=== PATIENT | male | born 1950 | race Caucasian/White ===

== ENCOUNTER 2017-09-25 09:38 | Emergency (ER) | payer MEDICARE, MEDICAID ==
[2017-09-25] MEDS ORDERED: LORazepam 1 MG Tab PO ONE (09:43)
[2017-09-25 09:55] VITALS: BP 135/81
[2017-09-25 10:39] LABS: CHLORIDE,CL 102 mmol/L (98-107); SODIUM,NA 140 mmol/L (136-145)
--- NOTE | 2017-09-25 12:03 | EDM.PDOCBH ---
ED HPI GENERAL MEDICAL PROBLEM - General Chief Complaint: Behavioral/Psych Time Seen by Provider: 09/25/17 11:57 Source of Information: Reports: Patient History Limitations: Reports: No Limitations - History of Present Illness INITIAL COMMENTS - FREE TEXT/NARRATIVE: Pt. is a resident at [facility]. He has a history of mental health including bipolar. Pt. was on Keppra which acted as a mood stablizer and this was recently discontinued by neurology. Since that time, pt. has been experiencing increased behavioral problems, carey, and occasional combativeness, according to nursing staff. Dr. Rodriguez, psychiatry at [facility], has sent the pt. to ER for medical clearance prior to transfer to [facility]. Onset: Today - Related Data Allergies Allergy/AdvReac Type Severity Reaction Status Date / Time desipramine Allergy unknown Verified 09/25/17 09:46 fluphenazine enanthate Allergy unknown Verified 09/25/17 09:46 [From Prolixin] fluphenazine HCl Allergy unknown Verified 09/25/17 09:46 [From Prolixin] NSAIDS (Non-Steroidal Allergy unknown Verified 09/25/17 09:46 Anti-Inflamma Home Meds: Home Meds Acetaminophen [Tylenol] 650 mg PO Q4HR PRN 07/28/15 [History] Allopurinol [Zyloprim] 100 mg PO DAILY 07/28/15 [History] Calcium Polycarbophil [Fibercon] 3 tab PO TID 07/28/15 [History] Cholecalciferol (Vitamin D3) [Vitamin D3] 1,000 unit PO DAILY 07/28/15 [History] Docusate Sodium [Colace] 100 mg PO BID 07/28/15 [History] Fenofibrate Nanocrystallized [Tricor] 145 mg PO BEDTIME 07/28/15 [History] Fish Oil/[place]-3 Fatty Acids [Fish Oil 1,000 MG] 1,000 mg PO BID 07/28/15 [ History] Haloperidol Lactate [Haldol] 5 mg IM Q6HR PRN 07/28/15 [History] Haloperidol [Haldol] 5 mg PO Q6H PRN 07/28/15 [History] Loxapine Succinate [Loxapine] 5 mg PO BID 07/28/15 [History] Menthol/Zinc Oxide [Calmoseptine Ointment Packet] 1 applic TOP BID 07/28/15 [ History] Multivitamin [Daily Multiple Vitamin] 1 tab PO DAILY 07/28/15 [History] Omeprazole [Prilosec] 20 mg PO DAILY 07/28/15 [History] Polyethylene Glycol 3350 [MiraLAX] 17 gm PO QAM 07/28/15 [History] Polymyxin B/Trimethoprim [PolyTrim Ophth Soln] 10 ml OP QID 07/28/15 [History] Sennosides [Senna] 8.6 mg PO BID 07/28/15 [History] Topiramate [Topamax] 50 mg PO BID 07/28/15 [History] Mirtazapine [Remeron] 30 mg PO QPM #30 tablet 08/04/15 [Rx] Multivitamin,Stress Formula [Stress Formula] 1 each PO DAILY 08/04/15 [History] Rivaroxaban [Xarelto] 20 mg PO DAILY #30 tablet 08/04/15 [Rx] cloZAPine 350 mg PO BEDTIME #30 tablet 08/04/15 [Rx] Past Medical History HEENT History: Reports: Other (See Below) Other HEENT History: Disorder of teeth and supporting structures, impacted cerumen bilaterally Cardiovascular History: Reports: Afib, Blood Clots/VTE/DVT, High Cholesterol Respiratory History: Reports: Other (See Below) Other Respiratory History: cough Gastrointestinal History: Reports: Chronic Constipation, GERD Other Gastrointestinal History: Unspecified Nutritional Deficiency, Abnormal Weight Loss Genitourinary History: Reports: BPH, Renal Disease Musculoskeletal History: Reports: Gout, Other (See Below) Other Musculoskeletal History: pain unspecified Neurological History: Reports: Headaches, Chronic, Seizure Psychiatric History: Reports: Anxiety, Bipolar, Other (See Below) Other Psychiatric History: schizoaffective disorder Endocrine/Metabolic History: Reports: Hypothyroidism, Vitamin D Deficiency, Other (See Below) Other Endocrine/Metabolic History: thrombocytopenia Dermatologic History: Reports: Other (See Below) Other Dermatologic History: tinea pedis Social & Family History - Family History Family Medical History: Unobtainable - Tobacco Use Smoking Status *Q: Unknown Ever Smoked - Recreational Drug Use Recreational Drug Use: No ED ROS GENERAL - Review of Systems Review Of Systems: Unable To Obtain (unable to obtain complete ROS.) Constitutional: Reports: No Symptoms HEENT: Reports: No Symptoms Respiratory: Reports: No Symptoms Cardiovascular: Reports: No Symptoms Skin: Reports: No Symptoms Neurological: Reports: Confusion Psychiatric: Reports: Agitation, Other (flight of ideas) ED EXAM, BEHAVIORAL HEALTH - Physical Exam Exam: See Below Exam Limited By: No Limitations General Appearance: Alert, WD/WN, Anxious Throat/Mouth: Normal Inspection, Normal Lips, Normal Teeth, Normal Gums, Normal Oropharynx, Normal Voice, No Airway Compromise Head: Atraumatic, Normocephalic Respiratory/Chest: No Respiratory Distress, Lungs Clear, Normal Breath Sounds, No Accessory Muscle Use, Chest Non-Tender Cardiovascular: Normal Peripheral Pulses, Regular Rate, Rhythm, No Edema, No Gallop, No JVD, No Murmur, No Rub GI/Abdominal: Normal Bowel Sounds, Soft, No Organomegaly, No Distention, No Mass (Male) Exam: Normal Inspection Back Exam: Normal Inspection, Full Range of Motion Extremities: Normal Inspection, Normal Range of Motion, Non-Tender, Normal Capillary Refill Neurological: Alert, Normal Mood/Affect, CN II-XII Intact, Normal Cognition, Normal Gait, Normal Reflexes, No Motor/Sensory Deficits, Oriented x 3 Psychiatric: Alert, Agitated, Flight of Ideas, Grandiose Thoughts Skin Exam: Warm, Dry, Intact, No rash, Pallor COURSE, BEHAVIORAL HEALTH COMP - Course Vital Signs: Last Vital Signs Temp 36.1 C 09/25/17 09:38 Pulse 105 H 09/25/17 09:38 Resp 20 09/25/17 09:38 BP 135/81 09/25/17 09:38 Pulse Ox 96 09/25/17 09:38 Orders, Labs, Meds: Active Orders 24 hr Category Date Time Status UA W/MICROSCOPIC [URIN] Stat Lab 09/25/17 09:44 Uncollected URINE DRUG SCREEN,POC [POC] Stat Lab 09/25/17 09:45 Uncollected Laboratory Tests 09/25/17 09/25/17 Range/Units 10:02 10:02 WBC 6.7 (4.0-10.0) x10^3/uL RBC 4.88 (4.5-6.0) x10^6/uL Hgb 14.5 (14.0-18.0) g/dL Hct 44.2 (40.0-52.0) % MCV 90.6 (78.0-93.0) fL MCH 29.7 (26.0-32.0) pg MCHC 32.8 (32.0-36.0) g/dL RDW Coeff of Shira 13.7 (10.0-15.0) % Plt Count 83 L (130-400) x10^3/uL Add Manual Diff Yes Neutrophils % (Manual) 72 (50-80) % Band Neutrophils % 6 (0-6) % Lymphocytes % (Manual) 19 L (25-50) % Eosinophils % (Manual) 3 (0-4) % Platelet Estimate Adequate Sodium 140 (136-145) mmol/L Potassium 4.0 (3.5-5.1) mmol/L Chloride 102 (98-107) mmol/L Carbon Dioxide 25 (21-32) mmol/L BUN 18 (7-18) mg/dL Creatinine 1.1 (0.70-1.30) mg/dL Est Cr Clr Drug Dosing TNP Estimated GFR (MDRD) > 60 Glucose 186 H (74-106) mg/dL Calcium 8.9 (8.5-10.1) mg/dL Corrected Calcium 9.38 (8.5-10.1) mg/dL Phosphorus 3.4 (2.6-4.7) mg/dL Magnesium 1.9 (1.8-2.4) mg/dL Total Bilirubin 0.5 (0.2-1.0) mg/dL AST 32 (15-37) U/L ALT 28 (16-63) U/L Alkaline Phosphatase 90 (46-116) U/L C-Reactive Protein 0.9 (<=0.9) mg/dL Total Protein 7.5 (6.4-8.2) g/dL Albumin 3.4 (3.4-5.0) g/dL Globulin 4.1 Albumin/Globulin Ratio 0.83 TSH, Ultra Sensitive 3.921 H (0.358-3.74) uIU/mL Medications Discontinued Medications Generic Name Dose Route Start Last Admin Trade Name Freq PRN Reason Stop Dose Admin Lorazepam 2 mg 09/25/17 09:43 09/25/17 10:01 Ativan PO 09/25/17 09:44 2 mg ONETIME ONE Administration Departure - Departure Time of Disposition: 12:03 Disposition: DC/Tfer to Psych Hosp/Unit 65 Condition: Good Clinical Impression: Bipolar 1 disorder with moderate carey - Discharge Information Referrals: Jessica Salamanca MD [Primary Care Provider] - Forms: ED Department Discharge, Interfacility Transfer EMTALA - My Orders Last 24 Hours: My Active Orders 09/25/17 09:44 UA W/MICROSCOPIC [URIN] Stat 09/25/17 09:45 URINE DRUG SCREEN,POC [POC] Stat - Assessment/Plan Last 24 Hours: My Active Orders 09/25/17 09:44 UA W/MICROSCOPIC [URIN] Stat 09/25/17 09:45 URINE DRUG SCREEN,POC [POC] Stat
== END 2017-09-25 12:12 ==
LOC: VM.ED 09:38
DX: F30.9 Manic episode, unspecified (principal); E78.00 Pure hypercholesterolemia, unspecified; Z88.8 Allergy status to other drugs, medicaments and biological substances; Z79.899 Other long term (current) drug therapy
CPT/HCPCS: 36415; 80053; 83735; 84100; 84443; 85025; 86140; 99284-GF; 99285; A9270-GY

== ENCOUNTER 2020-09-23 17:45 | Emergency (ER) | payer MEDICARE, MEDICAID ==
[2020-09-23] MEDS ORDERED: Morphine 4 MG/ML Syringe IVPUSH ONE (17:59)
--- NOTE | 2020-09-23 18:44 | CR ---
[id number] RAD/RAD Chest PA or AP 1V EXAM: FRONTAL CHEST INDICATION: FEVER. COMPARISON: None. DISCUSSION: Evaluation is mildly limited by hypoinflation with central vascular crowding and basilar atelectasis. No definite infiltrates. Normal heart size. Mild tortuosity of the thoracic aorta. Extensive degenerative changes in both shoulders with evidence of prior right shoulder surgery. Left upper extremity PICC tip overlying the SVC. IMPRESSION: 1. Low lung volumes. Nathan Salvador MD 09/23/20 [id number] Thank you for allowing us to participate in the care of your patient.
--- NOTE | 2020-09-23 18:49 | EDM.PDOC ---
<Lam Cosby W - Last Filed: 09/23/20 19:06> ED HPI GENERAL MEDICAL PROBLEM - General Chief Complaint: Fever Time Seen by Provider: 09/23/20 17:55 Source of Information: Reports: RN, RN Notes Reviewed History Limitations: Reports: No Limitations - History of Present Illness INITIAL COMMENTS - FREE TEXT/NARRATIVE: Pt. presents to ER via EMS. He is a resident at [facility] and is currently being treated for a severe pressure ulcer to sacrum. Pt. has a PICC line and is currently receiving IV antibiotics at the longterm. It appears that he is getting vancomycin and rocephin. Staff states that the patient became fatigued, hypotensive, febrile and chilled today and was subsequently sent to ER for evaluation and care. Pt. only complaint is that of pain to his sacrum that resolved rapidly with positioning/offloading of the sacrum. He is confused. Pt. does have a triplett catheter in place. He had covid 19 earlier this winter. He is not experiencing any cough or chest congestion at this time. Location: Reports: Back, Generalized Associated Symptoms: Reports: Confusion, Fever/Chills, Weakness - Related Data Allergies Allergy/AdvReac Type Severity Reaction Status Date / Time desipramine Allergy unknown Verified 09/25/17 09:46 fluphenazine enanthate Allergy unknown Verified 09/25/17 09:46 [From Prolixin] fluphenazine HCl Allergy unknown Verified 09/25/17 09:46 [From Prolixin] NSAIDS (Non-Steroidal Allergy unknown Verified 09/25/17 09:46 Anti-Inflamma Home Meds: Home Meds Acetaminophen [Tylenol] 650 mg PO Q4HR PRN 07/28/15 [History] Allopurinol [Zyloprim] 100 mg PO DAILY 07/28/15 [History] Cholecalciferol (Vitamin D3) [Vitamin D3] 1,000 unit PO DAILY 07/28/15 [History] Docusate Sodium [Colace] 100 mg PO BID 07/28/15 [History] Fenofibrate Nanocrystallized [Tricor] 145 mg PO BEDTIME 07/28/15 [History] Fish Oil/[place]-3 Fatty Acids [Fish Oil 1,000 MG] 1,000 mg PO BID 07/28/15 [History] Haloperidol Lactate [Haldol] 5 mg IM Q6HR PRN 07/28/15 [History] Haloperidol [Haldol] 5 mg PO Q6H PRN 07/28/15 [History] Loxapine Succinate [Loxapine] 5 mg PO BID 07/28/15 [History] Menthol/Zinc Oxide [Calmoseptine Ointment Packet] 1 applic TOP BID 07/28/15 [History] Multivitamin [Daily Multiple Vitamin] 1 tab PO DAILY 07/28/15 [History] Omeprazole [Prilosec] 20 mg PO DAILY 07/28/15 [History] Polyethylene Glycol 3350 [MiraLAX] 17 gm PO QAM 07/28/15 [History] Polymyxin B/Trimethoprim [PolyTrim Ophth Soln] 10 ml OP QID 07/28/15 [History] Sennosides [Senna] 8.6 mg PO BID 07/28/15 [History] Topiramate [Topamax] 50 mg PO BID 07/28/15 [History] calcium polycarbophiL [Fibercon] 3 tab PO TID 07/28/15 [History] Mirtazapine [Remeron] 30 mg PO QPM #30 tablet 08/04/15 [Rx] Multivitamin,Stress Formula [Stress Formula] 1 each PO DAILY 08/04/15 [History] Rivaroxaban [Xarelto] 20 mg PO DAILY #30 tablet 08/04/15 [Rx] cloZAPine 350 mg PO BEDTIME #30 tablet 08/04/15 [Rx] Past Medical History HEENT History: Reports: Other (See Below) Other HEENT History: Disorder of teeth and supporting structures, impacted cerumen bilaterally Cardiovascular History: Reports: Afib, Blood Clots/VTE/DVT, High Cholesterol Respiratory History: Reports: Other (See Below) Other Respiratory History: cough Gastrointestinal History: Reports: Chronic Constipation, GERD Other Gastrointestinal History: Unspecified Nutritional Deficiency, Abnormal Weight Loss Genitourinary History: Reports: BPH, Renal Disease Musculoskeletal History: Reports: Gout, Other (See Below) Other Musculoskeletal History: pain unspecified Neurological History: Reports: Headaches, Chronic, Seizure Psychiatric History: Reports: Anxiety, Bipolar, Other (See Below) Other Psychiatric History: schizoaffective disorder Endocrine/Metabolic History: Reports: Hypothyroidism, Vitamin D Deficiency, Other (See Below) Other Endocrine/Metabolic History: thrombocytopenia Dermatologic History: Reports: Other (See Below) Other Dermatologic History: tinea pedis Social & Family History - Family History Family Medical History: Unobtainable ED ROS GENERAL - Review of Systems Review Of Systems: See Below Constitutional: Reports: Fever, Chills, Malaise, Weakness, Fatigue HEENT: Reports: No Symptoms Respiratory: Reports: No Symptoms Cardiovascular: Reports: No Symptoms Endocrine: Reports: No Symptoms GI/Abdominal: Reports: No Symptoms : Reports: Other (triplett catheter) Skin: Reports: Other (sacral ulcer) Neurological: Reports: Confusion Psychiatric: Reports: No Symptoms Hematologic/Lymphatic: Reports: No Symptoms Immunologic: Reports: No Symptoms ED EXAM, GENERAL - Physical Exam Exam: See Below Exam Limited By: No Limitations General Appearance: Alert Respiratory/Chest: No Respiratory Distress, Decreased Breath Sounds, Crackles Cardiovascular: Normal Peripheral Pulses, Regular Rate, Rhythm, No Edema, No JVD Peripheral Pulses: 3+: Radial (R) GI/Abdominal: Soft, Non-Tender, No Distention, No Mass (Male) Exam: Deferred Rectal (Males) Exam: Deferred Back Exam: Other (see skin assessment. No other lesions noted to back.) Extremities: No Pedal Edema, Normal Capillary Refill, Other (PICC L upper arm) Neurological: Alert, CN II-XII Intact, No Motor/Sensory Deficits, Confused Psychiatric: Normal Affect, Normal Mood Skin Exam: Warm, Dry, Other (Ulcer to sacrum measuring approx. 4x4 cm in diameter, approx. 2-3 cm deep that extends to the bone. Wound is packed with moist gauze which was removed and repacked with sterile moist cling. Small amount of yellowish, serosanguinous appearing drainage noted. It is not purulent. ) Departure - Departure Disposition: DC/Tfer to [facility] Clinical Impression: Osteomyelitis of sacrum - Discharge Information Instructions: Osteomyelitis, Adult Referrals: Jessica Salamanca MD [Primary Care Provider] - Forms: ED Department Discharge <Renetta Perez - Last Filed: 09/23/20 19:54> Course - Vital Signs Text/Narrative:: 1899 Assumed care of the patient from Lam Luke. Labs pending. 1919 Labs reviewed. CBC neuts-81.2%, CMP BUN=19, CRP=6.4, Lactic Acid=1.4. 1 liter of NS infusing. Urine output picking up in trilpett tubing. [address] Lissy Segovia who agrees patient can return to the longterm after IV fluids since he has a PICC line and is already receiving Vancomycin and Ceftriaxone there for a total of 6 weeks. Urine output picking up from IV fluids and also pulse decreasing. Remained afebrile here in the ER. Will discharge the patient back to the [facility] to resume current IV abx. He left the ER in stable condition. - Orders/Labs/Meds Orders: Active Orders 24 hr Category Date Time Status EKG Documentation Completion [RC] STAT Care 09/23/20 17:54 Active Implanted Port Access [RC] DAILY Care 09/23/20 17:58 Active CULTURE BLOOD [BC] Stat Lab 09/23/20 18:30 Received CULTURE BLOOD [BC] Stat Lab 09/23/20 18:38 Received UA RFX PENNY AND CULT IF INDIC [URIN] Stat Lab 09/23/20 17:55 Ordered Sodium Chloride 0.9% [Normal Saline] 1,000 ml Med 09/23/20 19:04 Active IV ONETIME Blood Culture x2 Reflex Set [OM.PC] Stat Oth 09/23/20 17:55 Ordered Medication Orders Sodium Chloride (Normal Saline) 1,000 mls @ 999 mls/hr IV ONETIME ONE Stop: 09/23/20 20:04 Last Admin: 09/23/20 19:15 Dose: 999 mls/hr Documented by: ALEXY Labs: Laboratory Tests 09/23/20 09/23/20 09/23/20 Range/Units 18:30 18:30 18:30 WBC 8.6 (4.0-10.0) x10^3/uL RBC 4.07 L (4.5-6.0) x10^6/uL Hgb 11.6 L D (14.0-18.0) g/dL Hct 37.6 L (40.0-52.0) % MCV 92.4 (78.0-93.0) fL MCH 28.5 (26.0-32.0) pg MCHC 30.9 L (32.0-36.0) g/dL RDW Coeff of Shira 15.5 H (10.0-15.0) % Plt Count 195 D (130-400) x10^3/uL Neut % (Auto) 81.2 H (50.0-80.0) % Lymph % (Auto) 9.8 L (25.0-50.0) % Lynn % (Auto) 7.1 (2.0-11.0) % Eos % (Auto) 1.4 (0.0-4.0) % Baso % (Auto) 0.5 (0.2-1.2) % PT 12.3 (9.9-12.5) SEC INR 1.1 L (2.0-3.5) APTT (25.6-32.8) SEC Sodium 140 (136-145) mmol/L Potassium 3.6 (3.5-5.1) mmol/L Chloride 102 (98-107) mmol/L Carbon Dioxide 31 (21-32) mmol/L Anion Gap 10.6 (5-15) mmol/L BUN 19 H (7-18) mg/dL Creatinine 0.8 (0.70-1.30) mg/dL Est Cr Clr Drug Dosing TNP Estimated GFR (MDRD) > 60 Glucose 102 (74-106) mg/dL Lactic Acid (0.4-2.0) mmol/L Calcium 8.6 (8.5-10.1) mg/dL Corrected Calcium 9.72 (8.5-10.1) mg/dL Total Bilirubin 0.4 (0.2-1.0) mg/dL AST 19 (15-37) U/L ALT 16 (16-63) U/L Alkaline Phosphatase 69 (46-116) U/L Troponin I < 0.017 (<=0.056) ng/mL C-Reactive Protein 6.4 H (<=0.9) mg/dL Total Protein 7.5 (6.4-8.2) g/dL Albumin 2.6 L (3.4-5.0) g/dL Globulin 4.9 Albumin/Globulin Ratio 0.53 09/23/20 09/23/20 Range/Units 18:30 18:30 WBC (4.0-10.0) x10^3/uL RBC (4.5-6.0) x10^6/uL Hgb (14.0-18.0) g/dL Hct (40.0-52.0) % MCV (78.0-93.0) fL MCH (26.0-32.0) pg MCHC (32.0-36.0) g/dL RDW Coeff of Shira (10.0-15.0) % Plt Count (130-400) x10^3/uL Neut % (Auto) (50.0-80.0) % Lymph % (Auto) (25.0-50.0) % Lynn % (Auto) (2.0-11.0) % Eos % (Auto) (0.0-4.0) % Baso % (Auto) (0.2-1.2) % PT (9.9-12.5) SEC INR (2.0-3.5) APTT 40.1 H (25.6-32.8) SEC Sodium (136-145) mmol/L Potassium (3.5-5.1) mmol/L Chloride (98-107) mmol/L Carbon Dioxide (21-32) mmol/L Anion Gap (5-15) mmol/L BUN (7-18) mg/dL Creatinine (0.70-1.30) mg/dL Est Cr Clr Drug Dosing Estimated GFR (MDRD) Glucose (74-106) mg/dL Lactic Acid 1.4 (0.4-2.0) mmol/L Calcium (8.5-10.1) mg/dL Corrected Calcium (8.5-10.1) mg/dL Total Bilirubin (0.2-1.0) mg/dL AST (15-37) U/L ALT (16-63) U/L Alkaline Phosphatase (46-116) U/L Troponin I (<=0.056) ng/mL C-Reactive Protein (<=0.9) mg/dL Total Protein (6.4-8.2) g/dL Albumin (3.4-5.0) g/dL Globulin Albumin/Globulin Ratio Meds: Medications Generic Name Dose Route Start Last Admin Trade Name Freq PRN Reason Stop Dose Admin Sodium Chloride 1,000 mls @ 999 mls/hr 09/23/20 19:04 09/23/20 19:15 Normal Saline IV 09/23/20 20:04 999 mls/hr ONETIME ONE Administration Discontinued Medications Generic Name Dose Route Start Last Admin Trade Name Freq PRN Reason Stop Dose Admin Morphine Sulfate 4 mg 02/04/21 17:59 09/23/20 18:24 Morphine IVPUSH 09/23/20 18:00 4 mg ONETIME ONE Administration Departure - Departure Time of Disposition: 19:47 Condition: Good - Assessment/Plan Assessment:: 1)Osteomyelitis of the Sacrum Plan: -Continue Vancomycin/Ceftriaxone as prescribed by Infectious Disease per PICC -Push fluids -Resume meds as prescribed -Follow up with PCP for any concerns
[2020-09-23] MEDS ORDERED: Sodium Chloride 0.9% 1,000 ML IV ONE (19:04)
[2020-09-23 19:09] LABS: ANION GAP 10.6 mmol/L (5-15); CHLORIDE,CL 102 mmol/L (98-107); SODIUM,NA 140 mmol/L (136-145)
[2020-09-23 19:47] VITALS: BP 141/80; PULSE 106
[2020-09-23] MEDS ORDERED: Heparin Sodium 100 Units/ML 3 ML Syringe IVPUSH STA (20:07)
== END 2020-09-23 20:35 ==
LOC: VM.ED 17:45
DX: M86.9 Osteomyelitis, unspecified (principal); K21.9 Gastro-esophageal reflux disease without esophagitis; M10.9 Gout, unspecified; I48.91 Unspecified atrial fibrillation; Z88.8 Allergy status to other drugs, medicaments and biological substances; Z79.899 Other long term (current) drug therapy; Z79.01 Long term (current) use of anticoagulants; Z86.718 Personal history of other venous thrombosis and embolism
CPT/HCPCS: 36415; 71045; 80053; 81001; 83605; 84484; 85025; 85610; 85730; 86140; 87040; 87086; 93005; 96374; 99284; 99285-25; J1642; J2270; J7030

== ENCOUNTER 2020-10-23 16:45 | Inpatient (IN) | payer MEDICARE, MEDICAID ==
[2020-10-23] MEDS ORDERED: cefTRIAXone 2 GM Vial IV ONE (16:59)
[2020-10-23] MEDS ORDERED: Sodium Chloride 0.9% 1,000 ML IV ONE ×2 (16:59→19:25)
--- NOTE | 2020-10-23 17:22 | EDM.PDOC ---
ED HPI GENERAL MEDICAL PROBLEM - General Chief Complaint: Possible Sepsis Stated Complaint: fever/hypotension Time Seen by Provider: 10/23/20 16:47 Source of Information: Reports: EMS, [facility] Records History Limitations: Reports: Altered Mental Status - History of Present Illness INITIAL COMMENTS - FREE TEXT/NARRATIVE: Ivan is a 69 year old male who presents to ER per EMS with increased lethargy, fever, hypotension and hypoxia. Staff noted decreased responsiveness and fever earlier this afternoon. Had temp of 99.4, gave him 1000 mg of Tylenol at 1530. Noted 78% oxygen sat on 5 liters. Typically uses 2 liters of oxygen. Blood pressure 80s systolic. Patient is s/p covid within the last 90 days. Chronically wheelchair dependent, requires love lift for transfers. Is arousable to verbal stimuli per EMS. PMH includes atrial fib, Epilepsy, CKD, BPH, Schizoaffective Disorder, Encephalopathy, JOSE, Type 2 DM, Thrombocytopenia, Idiopathic hypotension. Rece nt history of osteomyelitis to sacral region. Currently has wound vac to area. Onset: Gradual Duration: Hour(s):, Getting Worse Location: Reports: Generalized Associated Symptoms: Reports: Confusion, Fever/Chills, Malaise, Shortness of Breath, Weakness. Denies: Cough Treatments REHABILITATION CASE COORDINATOR: Reports: Acetaminophen - Related Data Allergies Allergy/AdvReac Type Severity Reaction Status Date / Time desipramine Allergy unknown Verified 10/23/20 17:13 fluoxetine [From Prozac] Allergy Cannot Verified 10/23/20 17:13 Remember fluphenazine enanthate Allergy unknown Verified 10/23/20 17:13 [From Prolixin] fluphenazine HCl Allergy unknown Verified 10/23/20 17:13 [From Prolixin] NSAIDS (Non-Steroidal Allergy unknown Verified 10/23/20 17:13 Anti-Inflamma omeprazole [From Prilosec] Allergy Cannot Verified 10/23/20 17:13 Remember Home Meds: Home Meds Acetaminophen [Tylenol Extra Strength] 975 mg PO TID 10/23/20 [History] Albuterol/Ipratropium [DuoNeb 3.0-0.5 MG/3 ML] 1 dose INH QID 10/23/20 [History] Apixaban [Eliquis] 5 mg PO BID 10/23/20 [History] Ascorbic Acid [C-500] 500 mg PO BID 10/23/20 [History] Budesonide [Pulmicort] 0.5 mg IH BID 10/23/20 [History] Cholecalciferol (Vitamin D3) [Vitamin D3] 2,000 unit PO DAILY 10/23/20 [History] Finasteride [Proscar] 5 mg PO DAILY 10/23/20 [History] Furosemide 40 mg PO DAILY 10/23/20 [History] Levothyroxine 112 mcg PO DAILY 10/23/20 [History] Magnesium Hydroxide [Milk of Magnesia] 30 ml PO DAILY PRN 10/23/20 [History] Magnesium Oxide 500 mg PO DAILY 10/23/20 [History] Miconazole 1 dose TOP BID 10/23/20 [History] Midodrine 5 mg PO TID 10/23/20 [History] Multivitamin-Min/Iron/FA/Vit K [Multi-Day Plus Minerals Tablet] 1 each PO DAILY 10/23/20 [History] OLANZapine [ZyPREXA] 20 mg PO BID 10/23/20 [History] Valproic Acid [Depakene] 1,250 mg PO DAILY 10/23/20 [History] Valproic Acid [Depakene] 1,500 mg PO DAILY 10/23/20 [History] Vitamin A Acetate 3 gm MC DAILY 10/23/20 [History] atorvaSTATin [Lipitor] 20 mg PO DAILY 10/23/20 [History] clonazePAM [Clonazepam] 0.5 mg PO DAILY 10/23/20 [History] fluvoxaMINE Maleate [Fluvoxamine Maleate] 100 mg PO BID 10/23/20 [History] guaiFENesin/Dextromethorphan [Tussin Dm Liquid] 10 ml PO Q4H PRN 10/23/20 [History] levETIRAcetam [Keppra XR] 500 mg PO BID 10/23/20 [History] metFORMIN [Glucophage XR] 500 mg PO DAILY 10/23/20 [History] polyethylene glycoL 3350 [MiraLAX] 17 gm PO DAILY PRN 10/23/20 [History] traMADol [Ultram] 50 mg PO Q8H PRN 10/23/20 [History] Past Medical History HEENT History: Reports: Other (See Below) Other HEENT History: Disorder of teeth and supporting structures, impacted cerumen bilaterally Cardiovascular History: Reports: Afib, Blood Clots/VTE/DVT, High Cholesterol Respiratory History: Reports: Other (See Below) Other Respiratory History: cough Gastrointestinal History: Reports: Chronic Constipation, GERD Other Gastrointestinal History: Unspecified Nutritional Deficiency, Abnormal Weight Loss Genitourinary History: Reports: BPH, Renal Disease Musculoskeletal History: Reports: Gout, Other (See Below) Other Musculoskeletal History: pain unspecified Neurological History: Reports: Headaches, Chronic, Seizure Psychiatric History: Reports: Anxiety, Bipolar, Other (See Below) Other Psychiatric History: schizoaffective disorder Endocrine/Metabolic History: Reports: Hypothyroidism, Vitamin D Deficiency, Other (See Below) Other Endocrine/Metabolic History: thrombocytopenia Dermatologic History: Reports: Other (See Below) Other Dermatologic History: tinea pedis Social & Family History - Family History Family Medical History: Unobtainable - Tobacco Use Tobacco Use Status *Q: Unknown Ever Used Tobacco ED ROS GENERAL - Review of Systems Review Of Systems: Unable To Obtain Reason Not Obtained: ROS obtained from NH staff Constitutional: Reports: Fever, Malaise, Weakness, Fatigue Respiratory: Reports: Other (hypoxic) Endocrine: Reports: Fatigue GI/Abdominal: Denies: Nausea, Vomiting : Reports: Other (chronic catheter placement) Skin: Reports: Other (flushed) Neurological: Reports: Weakness ED EXAM, SEPSIS - Physical Exam Exam: See Below Exam Limited By: Altered Mental Status General Appearance: Lethargic Nose: Normal Inspection, Normal Mucosa Throat/Mouth: Other (mucous membranes) Head: Normocephalic Neck: Normal Inspection, Supple, Non-Tender Respiratory/Chest: Decreased Breath Sounds, Other (tachypnea) Cardiovascular: Irregularly Irregular GI/Abdominal Exam: Normal Bowel Sounds, Soft, Non-Tender Back: Other (wound vac to sacral area) Extremities: No Pedal Edema, Limited Range of Motion, Other (obvious chronic deformity of LLE) Neurological: Slow to Respond Skin: Other (flushed, clammy) Course - Vital Signs Last Recorded V/S: Last Vital Signs Temp 103.4 F H 10/23/20 16:45 Pulse 116 H 10/23/20 16:45 Resp 44 H 10/23/20 16:45 BP 119/77 10/23/20 16:45 Pulse Ox 96 10/23/20 16:45 - Orders/Labs/Meds Orders: Active Orders 24 hr Category Date Time Status Patient Status Manage Transfer [TRANSFER] Routine ADT 10/23/20 17:49 Ordered EKG Documentation Completion [RC] STAT Care 10/23/20 16:59 Active Oxygen Therapy, ED [RC] STAT Care 10/23/20 17:00 Active CULTURE BLOOD [BC] Stat Lab 10/23/20 16:55 Received CULTURE BLOOD [BC] Stat Lab 10/23/20 17:19 Received LACTIC ACID [CHEM] Routine Lab 10/23/20 17:45 Ordered Sodium Chloride 0.9% [Normal Saline] 1,000 ml Med 10/23/20 16:59 Active IV BOLUS Sodium Chloride 0.9% [Saline Flush] Med 10/23/20 16:59 Active 10 ml FLUSH ASDIRECTED PRN VANCOmycin 1.75 GM/350 ML 1.75 gm Med 10/23/20 17:41 Active Premix Bag 1 bag IV STAT Blood Culture x2 Reflex Set [OM.PC] Stat Oth 10/23/20 17:00 Ordered Saline Lock Insert [OM.PC] Stat Oth 10/23/20 17:00 Ordered Severe Sepsis Onset Time [OM.PC] Stat Oth 10/23/20 17:00 Ordered Code Status [Resuscitation Status] Stat Resus Stat 10/23/20 17:50 Ordered Medication Orders Sodium Chloride (Normal Saline) 1,000 mls @ 1,000 mls/hr IV BOLUS ONE; Protocol Stop: 10/23/20 17:58 Last Admin: 10/23/20 16:55 Dose: 1,000 mls/hr Documented by: BRIDGER Vancomycin HCl 1.75 gm/ Premix 350 mls @ 200 mls/hr IV STAT ONE Stop: 10/23/20 19:25 Sodium Chloride (Saline Flush) 10 ml FLUSH ASDIRECTED PRN PRN Reason: Keep Vein Open Labs: Laboratory Tests 10/23/20 10/23/20 10/23/20 Range/Units 16:55 16:55 16:55 WBC 12.6 H (4.0-10.0) x10^3/uL RBC 5.32 (4.5-6.0) x10^6/uL Hgb 15.1 D (14.0-18.0) g/dL Hct 49.3 (40.0-52.0) % MCV 92.7 (78.0-93.0) fL MCH 28.4 (26.0-32.0) pg MCHC 30.6 L (32.0-36.0) g/dL RDW Coeff of Shira 15.0 (10.0-15.0) % Plt Count 154 (130-400) x10^3/uL Neut % (Auto) 88.1 H (50.0-80.0) % Lymph % (Auto) 6.3 L (25.0-50.0) % R[place] % (Auto) 4.4 (2.0-11.0) % Eos % (Auto) 0.9 (0.0-4.0) % Baso % (Auto) 0.3 (0.2-1.2) % Sodium 147 H (136-145) mmol/L Potassium 4.2 (3.5-5.1) mmol/L Chloride 107 (98-107) mmol/L Carbon Dioxide 32 (21-32) mmol/L Anion Gap 12.2 (5-15) mmol/L BUN 45 H D (7-18) mg/dL Creatinine 1.0 (0.70-1.30) mg/dL Est Cr Clr Drug Dosing TNP Estimated GFR (MDRD) > 60 Glucose 135 H (74-106) mg/dL Lactic Acid 3.5 H* (0.4-2.0) mmol/L Calcium 9.4 (8.5-10.1) mg/dL Corrected Calcium 10.36 H (8.5-10.1) mg/dL Total Bilirubin 0.5 (0.2-1.0) mg/dL AST 23 (15-37) U/L ALT 33 (16-63) U/L Alkaline Phosphatase 88 (46-116) U/L C-Reactive Protein 5.5 H (<=0.9) mg/dL Total Protein 7.5 (6.4-8.2) g/dL Albumin 2.8 L (3.4-5.0) g/dL Globulin 4.7 Albumin/Globulin Ratio 0.60 Urine Color (YELLOW) Urine Appearance (CLEAR) Urine pH (5.0-8.0) Ur Specific [place] Urine Protein (NEGATIVE) mg/dL Urine Glucose (UA) (NEGATIVE) mg/dL Urine Ketones (NEGATIVE) mg/dL Urine Occult Blood (NEGATIVE) Urine Nitrite (NEGATIVE) Urine Bilirubin (NEGATIVE) Urine Urobilinogen (0.2) EU/dL Ur Leukocyte Esterase (NEGATIVE) U Hyaline Cast (Auto) Urine RBC (NOT SEEN) /HPF Urine WBC (NOT SEEN) /HPF Ur Squamous Epith Cells (NEGATIVE) /HPF Amorphous Sediment Urine Bacteria (NEGATIVE) /HPF Urine Mucus (NEGATIVE) /LPF 10/23/20 Range/Units 17:04 WBC (4.0-10.0) x10^3/uL RBC (4.5-6.0) x10^6/uL Hgb (14.0-18.0) g/dL Hct (40.0-52.0) % MCV (78.0-93.0) fL MCH (26.0-32.0) pg MCHC (32.0-36.0) g/dL RDW Coeff of Shira (10.0-15.0) % Plt Count (130-400) x10^3/uL Neut % (Auto) (50.0-80.0) % Lymph % (Auto) (25.0-50.0) % [place] % (Auto) (2.0-11.0) % Eos % (Auto) (0.0-4.0) % Baso % (Auto) (0.2-1.2) % Sodium (136-145) mmol/L Potassium (3.5-5.1) mmol/L Chloride (98-107) mmol/L Carbon Dioxide (21-32) mmol/L Anion Gap (5-15) mmol/L BUN (7-18) mg/dL Creatinine (0.70-1.30) mg/dL Est Cr Clr Drug Dosing Estimated GFR (MDRD) Glucose (74-106) mg/dL Lactic Acid (0.4-2.0) mmol/L Calcium (8.5-10.1) mg/dL Corrected Calcium (8.5-10.1) mg/dL Total Bilirubin (0.2-1.0) mg/dL AST (15-37) U/L ALT (16-63) U/L Alkaline Phosphatase (46-116) U/L C-Reactive Protein (<=0.9) mg/dL Total Protein (6.4-8.2) g/dL Albumin (3.4-5.0) g/dL Globulin Albumin/Globulin Ratio Urine Color Dark yellow H (YELLOW) Urine Appearance Cloudy H (CLEAR) Urine pH 5.0 (5.0-8.0) Ur Specific [place] 1.025 Urine Protein 100 H (NEGATIVE) mg/dL Urine Glucose (UA) Negative (NEGATIVE) mg/dL Urine Ketones 15 H (NEGATIVE) mg/dL Urine Occult Blood Large H (NEGATIVE) Urine Nitrite Positive H (NEGATIVE) Urine Bilirubin Small H (NEGATIVE) Urine Urobilinogen 1.0 (0.2) EU/dL Ur Leukocyte Esterase Small H (NEGATIVE) U Hyaline Cast (Auto) Few Urine RBC 40-50 H (NOT SEEN) /HPF Urine WBC 10-20 H (NOT SEEN) /HPF Ur Squamous Epith Cells Occasional H (NEGATIVE) /HPF Amorphous Sediment Occasional Urine Bacteria Moderate H (NEGATIVE) /HPF Urine Mucus Few H (NEGATIVE) /LPF Meds: Medications Generic Name Dose Route Start Last Admin Trade Name Freq PRN Reason Stop Dose Admin Sodium Chloride 1,000 mls @ 1,000 mls/hr 10/23/20 16:59 10/23/20 16:55 Normal Saline IV 10/23/20 17:58 1,000 mls/hr BOLUS ONE Administration Protocol Vancomycin HCl 1.75 gm/ Premix 350 mls @ 200 mls/hr 10/23/20 17:41 IV 10/23/20 19:25 STAT ONE Sodium Chloride 10 ml 10/23/20 16:59 Saline Flush FLUSH ASDIRECTED PRN Keep Vein Open Discontinued Medications Generic Name Dose Route Start Last Admin Trade Name Freq PRN Reason Stop Dose Admin Ceftriaxone Sodium 2 gm 10/23/20 16:59 10/23/20 17:10 Rocephin IV 10/23/20 17:00 2 gm STAT ONE Administration - Re-Assessments/Exams Free Text/Narrative Re-Assessment/Exam: 10/23/20 17:55 Labs noted elevated WBC at 12.6, CRP of 5.5. BUN 45. Creatinine is stable at 1.0. Lactic acid 3.5. UA positive. Contacted Dr. Segovia and informed of status/question admission. Called his guardian and informed of status. Departure - Departure Time of Disposition: 17:57 Disposition: Admitted As Inpatient 67 Condition: Poor Clinical Impression: UTI (urinary tract infection) Qualifiers: Urinary tract infection type: catheter-associated UTI Indwelling urinary catheter type: indwelling urethral catheter Encounter type: initial encounter Qualified Code(s): T83.511A - Infection and inflammatory reaction due to indwelling urethral catheter, initial encounter; N39.0 - Urinary tract infection, site not specified Sepsis Qualifiers: Sepsis acute organ dysfunction status: unspecified - Discharge Information *PRESCRIPTION DRUG MONITORING PROGRAM REVIEWED*: No *COPY OF PRESCRIPTION DRUG MONITORING REPORT IN PATIENT MYRIAM: No Referrals: Jessica Salamanca MD [Primary Care Provider] - Forms: ED Department Discharge Sepsis Event Note (ED) - Focused Exam Vital Signs: Vital Signs Temp Pulse Resp BP Pulse Ox Pulse Ox 10/23/20 16:45 103.4 F H 116 H 44 H 119/77 83 L 96 - Problem List & Annotations (1) Sepsis SNOMED Code(s): 91987860 Code(s): A41.9 - SEPSIS, UNSPECIFIED ORGANISM Status: Acute Priority: High Current Visit: Yes Qualifiers: Sepsis acute organ dysfunction status: unspecified (2) UTI (urinary tract infection) SNOMED Code(s): 86558501 Code(s): N39.0 - URINARY TRACT INFECTION, SITE NOT SPECIFIED Status: Acute Priority: High Current Visit: Yes Qualifiers: Urinary tract infection type: catheter-associated UTI Indwelling urinary catheter type: indwelling urethral catheter Encounter type: initial encounter Qualified Code(s): T83.511A - Infection and inflammatory reaction due to indwelling urethral catheter, initial encounter; N39.0 - Urinary tract infection, site not specified - Problem List Review Problem List Initiated/Reviewed/Updated: Yes - My Orders Last 24 Hours: My Active Orders 10/23/20 16:55 CULTURE BLOOD [BC] Stat 10/23/20 16:59 EKG Documentation Completion [RC] STAT Sodium Chloride 0.9% [Normal Saline] 1,000 ml IV BOLUS Sodium Chloride 0.9% [Saline Flush] 10 ml FLUSH ASDIRECTED PRN 10/23/20 17:00 Oxygen Therapy, ED [RC] STAT Blood Culture x2 Reflex Set [OM.PC] Stat Saline Lock Insert [OM.PC] Stat Severe Sepsis Onset Time [OM.PC] Stat 10/23/20 17:19 CULTURE BLOOD [BC] Stat 10/23/20 17:41 VANCOmycin 1.75 GM/350 ML 1.75 gm Premix Bag 1 bag IV STAT 10/23/20 17:45 LACTIC ACID [CHEM] Routine 10/23/20 17:49 Patient Status Manage Transfer [TRANSFER] Routine 10/23/20 17:50 Code Status [Resuscitation Status] Stat - Assessment/Plan Last 24 Hours: My Active Orders 10/23/20 16:55 CULTURE BLOOD [BC] Stat 10/23/20 16:59 EKG Documentation Completion [RC] STAT Sodium Chloride 0.9% [Normal Saline] 1,000 ml IV BOLUS Sodium Chloride 0.9% [Saline Flush] 10 ml FLUSH ASDIRECTED PRN 10/23/20 17:00 Oxygen Therapy, ED [RC] STAT Blood Culture x2 Reflex Set [OM.PC] Stat Saline Lock Insert [OM.PC] Stat Severe Sepsis Onset Time [OM.PC] Stat 10/23/20 17:19 CULTURE BLOOD [BC] Stat 10/23/20 17:41 VANCOmycin 1.75 GM/350 ML 1.75 gm Premix Bag 1 bag IV STAT 10/23/20 17:45 LACTIC ACID [CHEM] Routine 10/23/20 17:49 Patient Status Manage Transfer [TRANSFER] Routine 10/23/20 17:50 Code Status [Resuscitation Status] Stat
[2020-10-23 17:23] LABS: CHLORIDE,CL 107 mmol/L (98-107); SODIUM,NA 147 mmol/L (136-145)
[2020-10-23 17:27] LABS: ANION GAP 12.2 mmol/L (5-15)
--- NOTE | 2020-10-23 17:30 | CR ---
[id number] RAD/RAD Chest PA or AP 1V EXAM: SINGLE VIEW CHEST. INDICATION: SEPSIS COMPARISON: CORRELATION IS MADE WITH SEPTEMBER 23, 2020 FINDINGS: A left basilar infiltrate is seen The cardiac silhouette is enlarged but stable Surgical changes of the right shoulder are noted IMPRESSION: LEFT LOWER LOBE PNEUMONIA Kota Lott MD 10/23/20 1829 Thank you for allowing us to participate in the care of your patient.
[2020-10-23] MEDS ORDERED: VANCOmycin 1.75 GM/350 ML 1.75 GM in Premix Bag 1 BAG IV ONE (17:41)
[2020-10-23] MEDS ORDERED: Vancomycin 1 GM SDV ONE (18:10)
[2020-10-23] MEDS ORDERED: Vancomycin 750 MG SDV ONE (18:11)
[2020-10-23] MEDS ORDERED: Sodium Chloride 0.9% 500 ML IV ONE (18:54)
[2020-10-23] MEDS ORDERED: Ondansetron 4 MG/2 ML SDV IV PRN (19:03)
[2020-10-23] MEDS ORDERED: Acetaminophen 325 MG Tab PO PRN (19:03)
[2020-10-23] MEDS ORDERED: HYDROmorphone 0.5 MG/0.5 ML Syringe IVPUSH PRN (19:03)
[2020-10-23] MEDS ORDERED: Polyethylene Glycol 3350 Powder 17 GM Packet PO PRN (19:20)
[2020-10-23] MEDS ORDERED: Magnesium Hydroxide 400 MG/5 ML Susp 30 ML Cup PO PRN (19:20)
[2020-10-23] MEDS ORDERED: LORazepam 2 MG/ML SDV IVPUSH PRN (19:43)
[2020-10-23] MEDS ORDERED: Flumazenil 0.1 MG/ML 5 ML MDV IVPUSH PRN (19:43)
[2020-10-23] MEDS ORDERED: levETIRAcetam 500 MG Tab PO SCH (20:00)
[2020-10-23] MEDS ORDERED: Budesonide 0.5 MG/2 ML Neb Susp NEB SCH (20:00)
[2020-10-23] MEDS ORDERED: metroNIDAZOLE/Normal Saline 500 MG in Premix Bag 1 BAG IV SCH (20:00)
[2020-10-23] MEDS: Albuterol/Ipratropium 3.0-0.5 MG/3 ML Neb Soln INH SCH (20:31)
[2020-10-23] MEDS: Piperacillin/Tazobactam 3.375 GM in Sodium Chloride 0.9% 100 ML IV SCH (20:31)
[2020-10-23] MEDS: Budesonide 0.5 MG/2 ML Neb Susp NEB SCH (20:46)
[2020-10-23] MEDS: Sodium Chloride 0.9% 1,000 ML IV SCH ×2 (20:57→23:17)
[2020-10-23] MEDS: Hydrocortisone Sodium Succinate 100 MG/2 ML SDV IVPUSH SCH (21:48)
[2020-10-23] MEDS: levETIRAcetam in NaCl (iso-os) 500 MG in Premix Bag 1 BAG IV SCH ×2 (21:48)
[2020-10-23] MEDS: Miconazole 2% Top Powder 45 GM Container TOP SCH (21:51)
[2020-10-23] MEDS: Acetaminophen 325 MG Tab PO SCH (21:52)
[2020-10-23] MEDS: Valproic Acid 250 MG/5 ML Soln 5 ML UD Cup PO SCH (21:52)
[2020-10-23] MEDS: Midodrine 5 MG Tab PO SCH (21:52)
[2020-10-23] MEDS: OLANZapine 10 MG Tab PO SCH (21:52)
[2020-10-23] MEDS: Apixaban 2.5 MG Tab PO SCH (21:52)
--- NOTE | 2020-10-24 00:34 | HP ---
CHIEF COMPLAINT: Hypoxia and fever. HISTORY OF PRESENT ILLNESS: This is a 69-year-old male with schizoaffective disorder, who was in his normal state of health throughout the day. He had not been coughing, he had not aspirated on any food, and then the nurse had contacted around 3:30 that his heart rate went up to 115, his O2 sats were down to 74% on 2 L, 78% on 5 L, and decision was made to transfer [facility] to [facility]. On transfer, his temp was only 99, but on arrival here, he was over 103. He required 10 L of non-rebreather. He had an elevated white count and lactic acid, and decision was made to admit the patient for further cares as his guardian did want him to receive antibiotics. The patient was not alert at all in the ER, but is starting to answer questions with yes or no upstairs. His blood pressures responded initially very well to IV fluids from 76/44 up to 129. He is denying any pain. He had been [facility] for wound VAC change which he has had for a few weeks. He had been on IV antibiotics up until around 10/14 or 10/15 when Infectious Disease made the decision to stop them (sacral osteomyelitis). He had been getting some stool into the wound VAC area, but currently today, that area looks quite clean. It is warm because all of his skin is warm with the fever, just mild redness, but no drainage, no acute cellulitis. The patient also has an indwelling Muro catheter. The urine is dark and is decreased. He denies that he has any pain with that. He had a slight UA with 10 to 20 WBCs, but most impressive was his chest x-ray which showed a significant infiltrate in the left lung which was not present 1 month ago when he was in the ER. The patient had COVID back last fall at day 92 in September, he tested positive again, however, he had no symptoms. We did not retest him here as he is out of the 14-day window. ALLERGIES: Include aspirin, desipramine, fluphenazine, Prilosec, Prozac, NSAIDs. MEDICATIONS: His medication list is reviewed, includes vitamin C; Lipitor; clonazepam 1 mg daily; Eliquis 5 mg twice daily for AFib; Proscar 5 mg daily; fluvoxamine 100 mg 2 times a day; Lasix 40 mg daily; DuoNebs; Keppra 500 twice daily; levothyroxine 112 mcg daily; magnesium 500 daily; metformin 500 daily; midodrine 5 mg 3 times a day; multivitamin; oxygen, he normally is on 2 to 4 L p.r.n.; Pulmicort neb; tramadol 50 mg as needed, however, it does not appear that the patient has received any; Tylenol 975 three times a day; valproic acid 1250 once daily and 1500 for the other dose; vitamin A 3 mg daily; vitamin D; and Zyprexa 20 mg twice daily. PAST MEDICAL HISTORY: Includes type 2 diabetes without complications; major depression, single episode; generalized anxiety disorder; hyperlipidemia; schizoaffective disorder; idiopathic hypotension; mixed obsession of thoughts and acts; restlessness and agitation; thrombocytopenia; BPH with previous UTIs, now with Muro in place; hypothyroidism; paroxysmal AFib; encephalopathy. He has some deformity to the left ankle. Unclear if he had meningitis or other neurologic conditions when he was younger. Chronic low back pain; constipation; neuroleptic malignant syndrome; seizure disorder; osteoarthritis of the hip; chronic kidney disease, stage 3, actually his last creatinine was less than 1 through the clinic; bipolar type of schizoaffective disorder; personal history of COVID; positive cultures for group B Streptococcus, MRSA, and E coli with pressure ulcer and osteomyelitis, status post surgery in August for osteomyelitis of the sacrum. FAMILY HISTORY: He has a couple of siblings who are still living. I am awaiting a call back from his brother. Unknown if they have any health issues otherwise. SOCIAL HISTORY: The patient is not drinking or smoking. REVIEW OF SYSTEMS: Unobtainable due to the critical illness, current patient condition. PHYSICAL EXAMINATION: Vital Signs: Objectively, his weight is 89.8 kg, temp down to 100.1 finally on the floor, pulse 104, blood pressure 76/44, respiratory rate 40, and O2 of 93% on 10 L. General: He is in distress. He is red-appearing throughout. He is very lethargic. Heart: Regular rate and rhythm with tachycardia. Lungs: Sounds are decreased with extensive rhonchi over the left lung. No wheezing appreciated. Right lung is mostly clear. Abdomen: Nondistended. Positive bowel sounds. It is nontender. Extremities: Warm and dry. He has no edema. Skin: The sacral area is examined. Wound VAC is in place with clean edges. No drainage. There is warmth all over his body due to fever, but no significant redness. Mental Status: The patient is lethargic, but easily arousable to voice. He did answer questions yes or no. He clearly did state that he had no pain, and he also clearly stated when I asked him if he would want to go to the ICU in [place], that he did not. LABORATORY DATA: Lab work does show the patient to have a white count of 12.6, actually better than his recent lab work through the clinic; hemoglobin 15.1; platelets 154. Sodium 147, potassium 4.2, chloride 107, bicarb 32, BUN 45, creatinine 1, glucose 135, lactic 3.5, calcium 9.4, bilirubin 0.5, AST 23, ALT 33, alkaline phosphatase 88, albumin 2.8. Urine, positive nitrite, 40 to 50 RBCs, 10 to 20 WBCs. Chest x-ray, again, the left lower lobe infiltrate. EKG suggests AFib. It is probably more A-flutter as it is quite regular. The patient does have a history of this. There are no ST changes of concern. CRP, I guess that was 5.5. ASSESSMENT: 1. Severe sepsis due to a healthcare-associated pneumonia. The patient was just recently on antibiotics. I am not able to start him on Zyvox given his psychotropic medications. I will restart vancomycin. I will also add Zosyn. He already did get the Rocephin in the ER. I will repeat a lactic acid in 3 hours from the last lactic. I will also get the INR. We will repeat lab work in the morning. We will give him the 2 L boluses of IV fluids. I think his blood pressure will improve again. I suspect it went down when the fluids were slowed down for starting the antibiotics. If not, we will consider hydrocortisone. He also has his midodrine. Discussed with his guardian extensively he will not be getting pressors as patient is not planning to go for ICU cares per his request. 2. Healthcare-associated pneumonia. 3. Sacral osteomyelitis with wound VAC. We will continue with previous planned wound cares. Did discuss with the guardian the next option was going to be a diverting colostomy to help heal up his wound potentially and he is not a good candidate for surgery currently. 4. BPH with Urinary retention and need to control urine for his wound healing. Muro is in place. We will continue with the same. I would not change it while he is acutely septic. 5. Type 2 diabetes. I will hold his metformin. We will do q.i.d. Accu-Cheks and give him insulin if needed. 6. Chronic obstructive pulmonary disease. He will continue his home nebulizers. 7. Seizure disorder. He will continue his seizure medications. If he is unable to swallow them, I will give them IV. 8. Palliative cares. PLAN: The patient is admitted for acute cares. He does not require any DVT prophylaxis as he is on Eliquis. He has had no problems with bleeding. Repeat lab work in the morning. Continue IV fluids. Consider hydrocortisone if needed. Hold most of his vitamins. If he is unable to swallow, give some seizure medications IV. Have p.r.n. Ativan available as well for seizures. Sister called and was updated. He is a code level 5, but antibiotics are being given. He is not full comfort cares with morphine yet, but Dilaudid is ordered for pain. If his condition worsens, he will be placed on full comfort measures. MKA: 10/23/2020 19:43:19 MODL: 10/24/2020 00:15:30 /[id number] BRITTANY
[2020-10-24] MEDS: Piperacillin/Tazobactam 3.375 GM in Sodium Chloride 0.9% 100 ML IV SCH ×3 (04:17→20:32)
[2020-10-24] MEDS: Hydrocortisone Sodium Succinate 100 MG/2 ML SDV IVPUSH SCH (04:21)
[2020-10-24] MEDS: Sodium Chloride 0.9% 1,000 ML IV SCH (04:22)
[2020-10-24] MEDS: Albuterol/Ipratropium 3.0-0.5 MG/3 ML Neb Soln INH SCH ×4 (06:30→20:27)
[2020-10-24] MEDS: Budesonide 0.5 MG/2 ML Neb Susp NEB SCH ×2 (06:31→20:27)
[2020-10-24 08:24] LABS: CHLORIDE,CL 115 mmol/L (98-107); SODIUM,NA 152 mmol/L (136-145)
--- NOTE | 2020-10-24 09:20 | CR ---
[id number] RAD/RAD Chest PA or AP 1V EXAM: SINGLE VIEW CHEST. INDICATION: HYPOXIA COMPARISON: CORRELATION IS MADE WITH OCTOBER 23, 2020 FINDINGS: There is significant volume loss on the left The patient is rotated to the left The right lung is clear IMPRESSION: CONCERN FOR MUCOUS PLUG CONSIDER BRONCHOSCOPY Kota Lott MD 10/24/20 0919 Thank you for allowing us to participate in the care of your patient.
[2020-10-24] MEDS: levETIRAcetam in NaCl (iso-os) 500 MG in Premix Bag 1 BAG IV SCH ×2 (10:26)
[2020-10-24] MEDS: Finasteride 5 MG Tab PO SCH (10:29)
[2020-10-24] MEDS: ClonazePAM 0.5 MG Tab PO SCH (10:29)
[2020-10-24] MEDS: OLANZapine 10 MG Tab PO SCH ×2 (10:30→20:27)
[2020-10-24] MEDS: Apixaban 2.5 MG Tab PO SCH ×2 (10:30→20:27)
[2020-10-24] MEDS: Acetaminophen 325 MG Tab PO SCH ×3 (10:30→20:28)
[2020-10-24] MEDS: Levothyroxine 112 MCG Tab PO SCH (10:30)
[2020-10-24] MEDS: Midodrine 5 MG Tab PO SCH ×3 (10:30→20:28)
[2020-10-24] MEDS: Valproic Acid 250 MG/5 ML Soln 5 ML UD Cup PO SCH ×2 (10:35→20:27)
[2020-10-24] MEDS: Miconazole 2% Top Powder 45 GM Container TOP SCH ×2 (10:36→20:28)
[2020-10-24] MEDS: Sodium Chloride 0.45% 1,000 ML IV SCH ×2 (10:55→23:36)
--- NOTE | 2020-10-24 11:55 | PN ---
Progress Note for GARETT BOLDEN Date: 10/24/2020 Room #: [facility] SUBJECTIVE: This is hospital day #2 on a 69-year-old with acute hypoxic respiratory failure and severe sepsis due to a left lung pneumonia. The patient had normally been using some oxygen after his COVID-19 illness last fall. He developed a sacral ulcer and osteomyelitis including MRSA and had went off the antibiotics about 1 week ago. Nurse reported he had been doing fine until he had O2 sats dropping into the 70s and fever was 103.6 in the ER. He was not coughing. They deny that he had any choking or aspiration, but he does have a history of aspiration pneumonia and intubation back in 2016. The patient has been afebrile now since around 6 p.m. when he was 102.9. His tachycardia resolved during the night and he is in a sinus rhythm. He has a history of atrial fibrillation and is on Eliquis. He has been quite lethargic, but is alert enough to answer some questions yes or no. He has not had any oral intake yet for pills. Blood pressures still continue to run low. He has been on midodrine. He has been getting IV hydrocortisone. He denies abdominal pain. OBJECTIVE: Vital Signs: This morning, temperature 97, pulse 76, blood pressure 85/53, respiratory rate 20, O2 of 96% on 10 L high-flow. General: He is in no acute distress. Heart: Regular rate and rhythm. Lungs: Lung sounds are not present over the left lung. No crackles. No wheezes. Right lung, decreased but no crackles or wheezes. Abdomen: Nondistended. Positive bowel sounds. Soft, nontender. Extremities: Warm and dry. No edema. No mottling. Mental Status: The patient is lethargic, but opens his eyes and responds to verbal stimuli. LABORATORY DATA: Lab work shows white count up slightly to 13.5, hemoglobin down to 11.8, platelets 117. Sodium 152, potassium 4, chloride 115, bicarb 30, BUN 43, creatinine 0.8, glucose 145, lactic 1.5, calcium 8.4, AST 12, ALT 20, bilirubin 0.5, alkaline phosphatase 63. CRP up to 20. Albumin down to 2.1. Urine culture is growing Gram-negative rods. ASSESSMENT: 1. Severe sepsis due to healthcare-associated pneumonia. He has recent methicillin-resistant Staphylococcus aureus osteomyelitis. He is on IV vancomycin and IV Zosyn day #2. 2. Acute hypoxic respiratory failure due to pneumonia. I have been just informed by the nurse he is weaned down to 8 L high-flow and he is alert enough that he took his pills just now. 3. 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 He gets it changed every 3 days. Nursing has orders from [facility] and they will place them. This does not seem to be a source of infection today. Antibiotics would be covering if it was. 4. Benign prostatic hypertrophy with urinary retention. He has a Muro in place. His urine culture is positive. It should be covered by his current antibiotics. 5. Type 2 diabetes with metformin on hold. His Accu-Cheks have been acceptable. He is not requiring any insulin. 6. Chronic obstructive pulmonary disease with likely exacerbation due to the severe pneumonia. He is on nebulizers. 7. Seizure disorder. I will change the IV Keppra back to oral since he is able to take his oral pills. He has not had any seizures. He has p.r.n. Ativan available. 8. Palliative cares. 9. Hypernatremia. 10.Anemia due to hemodilution. We will repeat a hemoglobin tomorrow. 11.History of kidney stones. He has not had any symptoms. PLAN: The patient will continue acute cares. I did repeat a chest x-ray and the results did return worsening in that left lung. Consider bronchoscopy. This was discussed with his guardian. The patient has already elected not to pursue IV cares and I discussed it with him on admission. He actually does feel like he is dying. He has told that to staff. At this point, since he is clinically getting better and in no distress, we will not pursue any transfers to a higher level of care because he is a code 3, he would not want to be intubated for bronchoscopy. I will go ahead and stop the hydrocortisone but continue fluids. Midodrine is available, he takes that at home for low blood pressures. For DVT prophylaxis, he is on Eliquis. For his hyponatremia, I will turn his fluids over to half-normal saline. Also included a repeat COVID test, which was negative. Dr. Salamanca to assume care tomorrow. MKA: 10/24/2020 10:55:55 MODL: 10/24/2020 11:49:54 /[id number] MTDD
[2020-10-24] MEDS ORDERED: Glucagon,Human Recombinant 1 MG Vial IM PRN (14:20)
[2020-10-24] MEDS ORDERED: 50% Dextrose in Water 50 ML Syringe IV PRN (14:20)
[2020-10-24] MEDS: Insulin Glarg,Human.Rec.Analog 100 Unit/ML SUBCUT SCH (15:45)
[2020-10-24] MEDS: levETIRAcetam 500 MG Tab PO SCH (20:28)
[2020-10-25] MEDS: Midodrine 5 MG Tab PO SCH ×3 (06:11→17:10)
[2020-10-25] MEDS: Budesonide 0.5 MG/2 ML Neb Susp NEB SCH ×2 (07:06→19:54)
[2020-10-25] MEDS: Albuterol/Ipratropium 3.0-0.5 MG/3 ML Neb Soln INH SCH ×4 (07:06→19:54)
[2020-10-25 07:22] LABS: CHLORIDE,CL 112 mmol/L (98-107); SODIUM,NA 147 mmol/L (136-145)
[2020-10-25 07:26] LABS: ANION GAP 9.4 mmol/L (5-15)
[2020-10-25] MEDS: Valproic Acid 250 MG/5 ML Soln 5 ML UD Cup PO SCH ×2 (09:00→21:21)
[2020-10-25] MEDS: Sodium Chloride 0.9% 10 ML Syringe FLUSH PRN ×2 (09:00→11:18)
[2020-10-25] MEDS: OLANZapine 10 MG Tab PO SCH ×2 (09:01→19:53)
[2020-10-25] MEDS: Acetaminophen 325 MG Tab PO SCH ×3 (09:01→19:51)
[2020-10-25] MEDS: Apixaban 2.5 MG Tab PO SCH ×2 (09:01→19:53)
[2020-10-25] MEDS: ClonazePAM 0.5 MG Tab PO SCH (09:01)
[2020-10-25] MEDS: levETIRAcetam 500 MG Tab PO SCH ×2 (09:01→19:53)
[2020-10-25] MEDS: Levothyroxine 112 MCG Tab PO SCH (09:02)
[2020-10-25] MEDS: Miconazole 2% Top Powder 45 GM Container TOP SCH ×2 (09:02→21:21)
[2020-10-25] MEDS: Finasteride 5 MG Tab PO SCH (09:02)
[2020-10-25] MEDS: Sodium Chloride 0.45% 1,000 ML IV SCH (09:06)
[2020-10-25] MEDS: Insulin Glarg,Human.Rec.Analog 100 Unit/ML SUBCUT SCH (09:11)
[2020-10-25] MEDS: Piperacillin/Tazobactam 3.375 GM in Sodium Chloride 0.9% 100 ML IV SCH ×3 (11:17→21:20)
--- NOTE | 2020-10-25 12:38 | PCM.PN ---
- General Info Date of Service: 10/25/20 Subjective Update: 69 yo male hospital day #3 admitted with sepsis secondary to significant pneumonia. Patient states that he is not doing very well but is not able to expound on why. Nursing staff state he has been alert most of the morning with requests as specific as wanting to lay on his right side. He has been eating/drinking some but not great. He states that he has been coughing and that he has been short of breath. He states he is going to the bathroom ok. He denies any pain. - Review of Systems General: Reports: No Symptoms HEENT: Reports: No Symptoms Pulmonary: Reports: Shortness of Breath, Cough Cardiovascular: Reports: No Symptoms Gastrointestinal: Reports: No Symptoms Genitourinary: Reports: Other (Has a catheter in place) Musculoskeletal: Reports: No Symptoms Skin: Reports: No Symptoms Neurological: Reports: No Symptoms - Patient Data Vitals - Most Recent: Last Vital Signs Temp 37.1 C 10/25/20 09:51 Pulse 83 10/25/20 09:51 Resp 20 10/25/20 09:51 BP 76/48 L 10/25/20 09:51 Pulse Ox 99 10/25/20 10:44 Weight - Most Recent: 89.811 kg I&O - Last 24 Hours: Intake & Output 10/24/20 10/25/20 10/25/20 22:59 06:59 14:59 Intake Total 2587 1000 240 Output Total 550 Balance 2037 1000 240 Lab Results Last 24 Hours: Laboratory Results - last 24 hr 10/24/20 10/24/20 10/25/20 Range/Units 18:42 21:13 06:19 WBC (4.0-10.0) x10^3/uL RBC (4.5-6.0) x10^6/uL Hgb (14.0-18.0) g/dL Hct (40.0-52.0) % MCV (78.0-93.0) fL MCH (26.0-32.0) pg MCHC (32.0-36.0) g/dL RDW Coeff of Shira (10.0-15.0) % Plt Count (130-400) x10^3/uL Neut % (Auto) (50.0-80.0) % Lymph % (Auto) (25.0-50.0) % [place] % (Auto) (2.0-11.0) % Eos % (Auto) (0.0-4.0) % Baso % (Auto) (0.2-1.2) % Sodium (136-145) mmol/L Potassium (3.5-5.1) mmol/L Chloride (98-107) mmol/L Carbon Dioxide (21-32) mmol/L Anion Gap (5-15) mmol/L BUN (7-18) mg/dL Creatinine (0.70-1.30) mg/dL Est Cr Clr Drug Dosing mL/min Estimated GFR (MDRD) Glucose (74-106) mg/dL POC Glucose 122 H 122 H 73 L (74-106) mg/dL Calcium (8.5-10.1) mg/dL C-Reactive Protein (<=0.9) mg/dL 10/25/20 10/25/20 10/25/20 Range/Units 06:23 06:23 06:23 WBC 8.4 (4.0-10.0) x10^3/uL RBC 3.54 L (4.5-6.0) x10^6/uL Hgb 10.0 L D (14.0-18.0) g/dL Hct 34.0 L (40.0-52.0) % MCV 96.0 H (78.0-93.0) fL MCH 28.2 (26.0-32.0) pg MCHC 29.4 L (32.0-36.0) g/dL RDW Coeff of Shira 15.0 (10.0-15.0) % Plt Count 109 L (130-400) x10^3/uL Neut % (Auto) 75.2 (50.0-80.0) % Lymph % (Auto) 16.2 L (25.0-50.0) % [place] % (Auto) 6.6 (2.0-11.0) % Eos % (Auto) 1.9 (0.0-4.0) % Baso % (Auto) 0.1 L (0.2-1.2) % Sodium 147 H (136-145) mmol/L Potassium 3.4 L (3.5-5.1) mmol/L Chloride 112 H (98-107) mmol/L Carbon Dioxide 29 (21-32) mmol/L Anion Gap 9.4 (5-15) mmol/L BUN 24 H (7-18) mg/dL Creatinine 0.6 L (0.70-1.30) mg/dL Est Cr Clr Drug Dosing 129.33 mL/min Estimated GFR (MDRD) > 60 Glucose 75 (74-106) mg/dL POC Glucose (74-106) mg/dL Calcium 8.4 L (8.5-10.1) mg/dL C-Reactive Protein 26.3 H (<=0.9) mg/dL Gerber Results Last 24 Hours: Microbiology 10/24/20 13:14 Gram Stain - Final Sputum - Expectorated Sputum Culture - Preliminary Staphylococcus Coagulase Neg 10/23/20 17:04 Urine Culture - Final Urine, Muro Cath (Indwelling) Pseudomonas Aeruginosa 10/23/20 17:19 Aerobic Blood Culture - Preliminary Blood - Venous - Lab Draw NO GROWTH AFTER 1 DAY Anaerobic Blood Culture - Preliminary NO GROWTH AFTER 1 DAY 10/23/20 16:55 Aerobic Blood Culture - Preliminary Blood - Venous NO GROWTH AFTER 1 DAY Anaerobic Blood Culture - Preliminary NO GROWTH AFTER 1 DAY Med Orders - Current: Current Medications Acetaminophen (Tylenol) 650 mg PO Q4H PRN PRN Reason: Pain (Mild 1-3)/fever Acetaminophen (Tylenol) 975 mg PO TID [facility] Last Admin: 10/25/20 11:18 Dose: 975 mg Documented by: Albuterol/Ipratropium (Duoneb 3.0-0.5 Mg/3 Ml) 3 ml INH QIDRT [facility] Last Admin: 10/25/20 10:41 Dose: 3 ml Documented by: Apixaban (Eliquis) 5 mg PO BID [facility] Last Admin: 10/25/20 09:01 Dose: 5 mg Documented by: Budesonide (Pulmicort) 0.5 mg NEB BIDRT [facility] Last Admin: 10/25/20 07:06 Dose: 0.5 mg Documented by: Clonazepam (Klonopin) 0.5 mg PO DAILY [facility] Last Admin: 10/25/20 09:01 Dose: 0.5 mg Documented by: Dextrose/Water (Dextrose 50% In Water) 50 ml IV ASDIRECTED PRN PRN Reason: Hypoglycemia Finasteride (Proscar) 5 mg PO DAILY [facility] Last Admin: 10/25/20 09:02 Dose: 5 mg Documented by: Flumazenil (Romazicon) 0.2 mg IVPUSH ASDIRECTED PRN PRN Reason: Respiratory Depression Glucagon (Glucagen) 1 mg IM ASDIRECTED PRN PRN Reason: Hypoglycemia Hydromorphone HCl (Dilaudid) 0.25 mg IVPUSH Q2H PRN PRN Reason: Pain (severe 7-10) Piperacillin Sod/Tazobactam (Sod 3.375 gm/ Sodium Chloride) 100 mls @ 25 mls/hr IV Q8H [facility] Last Admin: 10/25/20 11:17 Dose: 25 mls/hr Documented by: Vancomycin HCl 1.25 gm/ Sodium (Chloride) 250 mls @ 200 mls/hr IV Q12H [facility] Last Admin: 10/25/20 08:59 Dose: 200 mls/hr Documented by: Sodium Chloride (Sodium Chloride 0.45%) 1,000 mls @ 100 mls/hr IV ASDIRECTED [facility] Last Admin: 10/25/20 09:06 Dose: 100 mls/hr Documented by: Insulin Glargine (Lantus) 8 unit SUBCUT DAILY [facility] Last Admin: 10/25/20 09:11 Dose: Not Given Documented by: Levetiracetam (Keppra) 500 mg PO BID [facility] Last Admin: 10/25/20 09:01 Dose: 500 mg Documented by: Levothyroxine Sodium (Levothyroxine) 112 mcg PO DAILY [facility] Last Admin: 10/25/20 09:02 Dose: 112 mcg Documented by: Lorazepam (Ativan) 1 mg IVPUSH Q4H PRN PRN Reason: Seizures Magnesium Hydroxide (Milk Of Magnesia) 30 ml PO DAILY PRN PRN Reason: Constipation Miconazole (Desenex 2%) 0 gm TOP BID [facility] Last Admin: 10/25/20 09:02 Dose: 1 applic Documented by: Midodrine (Midodrine) 5 mg PO TIDAC [facility] Last Admin: 10/25/20 11:19 Dose: 5 mg Documented by: Non-Formulary Medication (Fluvoxamine Maleate [Fluvoxamine Maleate]) 100 mg PO BID [facility] Olanzapine (Zyprexa) 20 mg PO BID [facility] Last Admin: 10/25/20 09:01 Dose: 20 mg Documented by: Ondansetron HCl (Zofran) 4 mg IV Q4H PRN PRN Reason: Nausea/Vomiting Polyethylene Glycol (Miralax) 17 gm PO DAILY PRN PRN Reason: Constipation Sodium Chloride (Saline Flush) 10 ml FLUSH ASDIRECTED PRN PRN Reason: Keep Vein Open Last Admin: 10/25/20 11:18 Dose: 10 ml Documented by: Sodium Chloride (Saline Flush) 10 ml FLUSH ASDIRECTED PRN PRN Reason: Keep Vein Open Valproic Acid (Depakene) 1,250 mg PO DAILY [facility] Last Admin: 10/25/20 09:00 Dose: 1,250 mg Documented by: Valproic Acid (Depakene) 1,500 mg PO DAILY@2100 [facility] Last Admin: 10/24/20 20:27 Dose: 1,500 mg Documented by: Vancomycin HCl (Pharmacy To Dose - Vancomycin) 1 dose .XX ASDIRECTED KHADRA Discontinued Medications Budesonide (Pulmicort) 0.5 mg NEB BID [facility] Last Admin: 10/23/20 20:50 Dose: Not Given Documented by: Ceftriaxone Sodium (Rocephin) 2 gm IV STAT ONE Stop: 10/23/20 17:00 Last Admin: 10/23/20 17:10 Dose: 2 gm Documented by: Hydrocortisone Sodium Succinate (Solu-Cortef) 100 mg IVPUSH Q6H [facility] Last Admin: 10/24/20 04:21 Dose: 100 mg Documented by: Sodium Chloride (Normal Saline) 1,000 mls @ 1,000 mls/hr IV BOLUS ONE; Protocol Stop: 10/23/20 17:58 Last Admin: 10/23/20 16:55 Dose: 1,000 mls/hr Documented by: Vancomycin HCl 1.75 gm/ Premix 350 mls @ 200 mls/hr IV STAT ONE Stop: 10/23/20 19:25 Last Admin: 10/23/20 18:15 Dose: Not Given Documented by: Sodium Chloride (Normal Saline) 500 mls @ 500 mls/hr IV ONETIME ONE Stop: 10/23/20 19:53 Last Admin: 10/23/20 19:27 Dose: Not Given Documented by: Metronidazole 500 mg/ Premix 100 mls @ 100 mls/hr IV Q8H [facility] Vancomycin HCl 1 gm/ Sodium (Chloride) 250 mls @ 250 mls/hr IV Q12H [facility] Last Admin: 10/23/20 20:50 Dose: Not Given Documented by: Sodium Chloride (Normal Saline) 1,000 mls @ 200 mls/hr IV ASDIRECTED [facility] Last Admin: 10/24/20 04:22 Dose: 200 mls/hr Documented by: Sodium Chloride (Normal Saline) 1,000 mls @ 500 mls/hr IV ONETIME ONE Stop: 10/23/20 20:53 Last Admin: 10/23/20 19:32 Dose: 500 mls/hr Documented by: Vancomycin HCl 1.25 gm/ Sodium (Chloride) 250 mls @ 200 mls/hr IV Q12H [facility] Last Admin: 10/23/20 23:18 Dose: Not Given Documented by: Levetiracetam 500 mg/ Premix 100 mls @ 400 mls/hr IV BID [facility] Last Admin: 10/24/20 10:26 Dose: 400 mls/hr Documented by: Levetiracetam (Keppra) 500 mg PO BID [facility] Last Admin: 10/23/20 21:59 Dose: Not Given Documented by: Vancomycin HCl (Vancomycin) Confirm Administered Dose 1 gm .ROUTE .STK-MED ONE Stop: 10/23/20 18:11 Last Admin: 10/23/20 18:14 Dose: 1 gm Documented by: Vancomycin HCl (Vancomycin) Confirm Administered Dose 750 mg .ROUTE .STK-MED ONE Stop: 10/23/20 18:12 Last Admin: 10/23/20 18:14 Dose: 750 mg Documented by: - Exam General: No Acute Distress, Other (Resting calmly in bed - is sleepy but does alert to voice) HEENT: Mucous Membr. Moist/Susan Moore Neck: Supple, Trachea Midline, No Thyromegaly. No: Lymphadenopathy Lungs: Normal Respiratory Effort, Crackles (diffuse bilaterally) Cardiovascular: Regular Rate, Regular Rhythm, No Murmurs GI/Abdominal Exam: Normal Bowel Sounds, Soft, Non-Tender, No Organomegaly, No Distention, No Mass Extremities: Non-Tender, No Pedal Edema, Normal Capillary Refill Peripheral Pulses: 2+: Radial (L), Radial (R) Skin: Warm, Dry, Intact - Patient Data Lab Results Last 24 hrs: Laboratory Results - last 24 hr 10/24/20 10/24/20 10/25/20 Range/Units 18:42 21:13 06:19 WBC (4.0-10.0) x10^3/uL RBC (4.5-6.0) x10^6/uL Hgb (14.0-18.0) g/dL Hct (40.0-52.0) % MCV (78.0-93.0) fL MCH (26.0-32.0) pg MCHC (32.0-36.0) g/dL RDW Coeff of Shira (10.0-15.0) % Plt Count (130-400) x10^3/uL Neut % (Auto) (50.0-80.0) % Lymph % (Auto) (25.0-50.0) % [place] % (Auto) (2.0-11.0) % Eos % (Auto) (0.0-4.0) % Baso % (Auto) (0.2-1.2) % Sodium (136-145) mmol/L Potassium (3.5-5.1) mmol/L Chloride (98-107) mmol/L Carbon Dioxide (21-32) mmol/L Anion Gap (5-15) mmol/L BUN (7-18) mg/dL Creatinine (0.70-1.30) mg/dL Est Cr Clr Drug Dosing mL/min Estimated GFR (MDRD) Glucose (74-106) mg/dL POC Glucose 122 H 122 H 73 L (74-106) mg/dL Calcium (8.5-10.1) mg/dL C-Reactive Protein (<=0.9) mg/dL 10/25/20 10/25/20 10/25/20 Range/Units 06:23 06:23 06:23 WBC 8.4 (4.0-10.0) x10^3/uL RBC 3.54 L (4.5-6.0) x10^6/uL Hgb 10.0 L D (14.0-18.0) g/dL Hct 34.0 L (40.0-52.0) % MCV 96.0 H (78.0-93.0) fL MCH 28.2 (26.0-32.0) pg MCHC 29.4 L (32.0-36.0) g/dL RDW Coeff of Shira 15.0 (10.0-15.0) % Plt Count 109 L (130-400) x10^3/uL Neut % (Auto) 75.2 (50.0-80.0) % Lymph % (Auto) 16.2 L (25.0-50.0) % [place] % (Auto) 6.6 (2.0-11.0) % Eos % (Auto) 1.9 (0.0-4.0) % Baso % (Auto) 0.1 L (0.2-1.2) % Sodium 147 H (136-145) mmol/L Potassium 3.4 L (3.5-5.1) mmol/L Chloride 112 H (98-107) mmol/L Carbon Dioxide 29 (21-32) mmol/L Anion Gap 9.4 (5-15) mmol/L BUN 24 H (7-18) mg/dL Creatinine 0.6 L (0.70-1.30) mg/dL Est Cr Clr Drug Dosing 129.33 mL/min Estimated GFR (MDRD) > 60 Glucose 75 (74-106) mg/dL POC Glucose (74-106) mg/dL Calcium 8.4 L (8.5-10.1) mg/dL C-Reactive Protein 26.3 H (<=0.9) mg/dL Result Diagrams: 10/25/20 06:23 10/25/20 06:23 Gerber Results Last 24 hrs: Microbiology 10/24/20 13:14 Gram Stain - Final Sputum - Expectorated Sputum Culture - Preliminary Staphylococcus Coagulase Neg 10/23/20 17:04 Urine Culture - Final Urine, Muro Cath (Indwelling) Pseudomonas Aeruginosa 10/23/20 17:19 Aerobic Blood Culture - Preliminary Blood - Venous - Lab Draw NO GROWTH AFTER 1 DAY Anaerobic Blood Culture - Preliminary NO GROWTH AFTER 1 DAY 10/23/20 16:55 Aerobic Blood Culture - Preliminary Blood - Venous NO GROWTH AFTER 1 DAY Anaerobic Blood Culture - Preliminary NO GROWTH AFTER 1 DAY Sepsis Event Note - Evaluation Sepsis Screening Result: No Definite Risk - Focused Exam Vital Signs: Vital Signs Temp Pulse Resp BP Pulse Ox Pulse Ox 10/25/20 10:44 99 10/25/20 09:51 37.1 C 83 20 76/48 L 94 L 10/25/20 07:09 92 L 10/25/20 06:00 34.6 C L 65 21 H 96/57 L 100 10/25/20 02:00 36.8 C 86 22 H 85/58 L 98 - Problem List & Annotations (1) Sepsis SNOMED Code(s): 47500787 Code(s): A41.9 - SEPSIS, UNSPECIFIED ORGANISM Status: Acute Priority: High Current Visit: Yes Qualifiers: Sepsis type: sepsis due to unspecified organism Sepsis acute organ dysfunction status: unspecified Qualified Code(s): A41.9 - Sepsis, unspecified organism (2) Hypotension SNOMED Code(s): 85602256 Code(s): I95.9 - HYPOTENSION, UNSPECIFIED Status: Chronic Current Visit: No Qualifiers: Hypotension type: idiopathic hypotension Qualified Code(s): I95.0 - Idiopathic hypotension (3) Healthcare-associated pneumonia SNOMED Code(s): 854022008, 320635520 Code(s): J18.9 - PNEUMONIA, UNSPECIFIED ORGANISM Status: Acute Current Visit: Yes (4) Palliative care patient SNOMED Code(s): 141430462, 386746580 Code(s): Z51.5 - ENCOUNTER FOR PALLIATIVE CARE Status: Acute Current Visit: Yes (5) Urine culture positive SNOMED Code(s): 458339965 Code(s): R82.79 - OTHER ABNORMAL FINDINGS ON MICROBIOLOG EXAMINATION OF URINE Status: Acute Current Visit: Yes (6) BPH (benign prostatic hyperplasia) SNOMED Code(s): 500922178 Code(s): N40.0 - BENIGN PROSTATIC HYPERPLASIA WITHOUT LOWER URINRY TRACT SYMP Status: Acute Current Visit: Yes Qualifiers: Lower urinary tract symptom presence: symptoms present Lower urinary tract symptom detail: urinary retention Qualified Code(s): N40.1 - Benign prostatic hyperplasia with lower urinary tract symptoms; R33.8 - Other retention of urine (7) Indwelling urinary catheter present SNOMED Code(s): 596560373, 373522138 Code(s): Z96.0 - PRESENCE OF UROGENITAL IMPLANTS Status: Chronic Current Visit: Yes (8) Sacral wound SNOMED Code(s): 411935218, 917760896 Code(s): S31.000A - UNSP OPN WND LOW BACK AND PELV W/O PENET RETROPERITON, INIT Status: Chronic Current Visit: Yes Qualifiers: Encounter type: subsequent encounter Qualified Code(s): S31.000D - Unspecified open wound of lower back and pelvis without penetration into retroperitoneum, subsequent encounter (9) Osteomyelitis of sacrum SNOMED Code(s): 539687218, 155539074 Code(s): M46.28 - OSTEOMYELITIS OF VERTEBRA, SACRAL AND SACROCOCCYGEAL REGION Status: Resolved Current Visit: No (10) Diabetes SNOMED Code(s): 69062246 Code(s): E11.9 - TYPE 2 DIABETES MELLITUS WITHOUT COMPLICATIONS Status: Chronic Current Visit: Yes Qualifiers: Diabetes mellitus type: type 2 Diabetes mellitus shelter insulin use: without terminal gauger supervisor use Diabetes mellitus complication status: without complication Qualified Code(s): E11.9 - Type 2 diabetes mellitus without complications (11) COPD (chronic obstructive pulmonary disease) SNOMED Code(s): 99384284 Code(s): J44.9 - CHRONIC OBSTRUCTIVE PULMONARY DISEASE, UNSPECIFIED Status: Chronic Current Visit: Yes Qualifiers: COPD type: unspecified COPD Qualified Code(s): J44.9 - Chronic obstructive pulmonary disease, unspecified (12) Schizoaffective disorder SNOMED Code(s): 61109085 Code(s): F25.9 - SCHIZOAFFECTIVE DISORDER, UNSPECIFIED Status: Chronic Current Visit: Yes Qualifiers: Schizoaffective disorder type: unspecified Qualified Code(s): F25.9 - Schizoaffective disorder, unspecified (13) Seizure disorder SNOMED Code(s): 442201583 Code(s): G40.909 - EPILEPSY, UNSP, NOT INTRACTABLE, WITHOUT STATUS EP ILEPTICUS Status: Chronic Current Visit: Yes (14) Anemia SNOMED Code(s): 184020414 Code(s): D64.9 - ANEMIA, UNSPECIFIED Status: Acute Current Visit: Yes Qualifiers: Anemia type: unspecified type Qualified Code(s): D64.9 - Anemia, unspecified (15) Hypernatremia SNOMED Code(s): 950118209 Code(s): E87.0 - HYPEROSMOLALITY AND HYPERNATREMIA Status: Acute Priority: High Current Visit: No Onset Date: 07/28/15 - Problem List Review Problem List Initiated/Reviewed/Updated: Yes - My Orders Last 24 Hours: My Active Orders 10/25/20 12:32 URINALYSIS W/MICROSCOPIC [UA W/MICROSCOPIC] [URIN] Routine 10/26/20 05:11 BASIC METABOLIC PANEL,BMP [CHEM] Routine C-REACTIVE PROTEIN [CHEM] Routine CBC WITH AUTO DIFF [HEME] Routine - Assessment Assessment:: 69 yo male hospital day #3 admitted with sepsis secondary to pneumonia. Is clinically doing much better with improvements in BP and labs; still requiring a significant amount of O2 via high flow nasal cannula but this is stable. - Plan Plan:: #1 Severe sepsis, secondary to #3 #2 Hypotension, acute on chronic #3 Healthcare associated Pneumonia #4 Palliative care patient - Patient remains critically ill. Transfer to [place] had been discussed with patient, guardian, and family but they declined. Therefore, he is admitted for IV antibiotics under a palliative status with plans only for treatment available here. Patient, guardian, and family on board with this plan. - He is no longer meeting sepsis criteria now given WBC normal and improvement in vital signs. - Has chronic hypotension for which he is on midodrine. BP's better after hydrocortisone and IV fluids. Continue midodrine only for now. - He is on maintenance IV fluids as well given he is not eating/drinking adequately at this point. - Blood cultures no growth to date. Urine and sputum cultures positive. - Continue zosyn and vancomycin for now. His sputum culture did show coagulase negative staph, which would be an unusual organism for pneumonia. Will await final culture results. - If he continues to improve and WBC remains normal, could consider transition to oral antibiotics tomorrow since he would have received 48 hours of IV's by that point. - Continue symptomatic cares as well. #5 Urine culture positive for pseudomonas #6 BPH with urinary retention #7 Chronic indwelling urinary catheter - Has not really had concerns for UTI given significant pneumonia. - Culture did grow pseudomonas, which is resistant to the antibiotics he is on. - Given he is clinically improving, really less likely that the UTI is an infection and more likely this is colonization. - They will change out his catheter today and we will get a u/a on the new catheter. If he does have pyuria, will have to consider d/c of zosyn and replacing with levofloxacin instead. #8 Sacral Wound #9 Recent sacral osteomyelitis - Completed antibiotics recently for this. Not likely to be a major contributor to his current illness. - Wound clinic appointments scheduled. - He is due for change on his wound vac today as well. Nursing aware. #10 Diabetes - Glucose low this morning. - He has been on insulin here but is not on insulin at home. - Will d/c lantus and do low dose correction scale with meals. #11 COPD #12 Schizoaffective Disorder #13 Seizure disorder - He is swallowing his pills without any issues. - Home medications continued. #14 Hypernatremia #15 Anemia - Sodium improved today. - Hgb down significantly from yesterday. - Will recheck again this afternoon. If continuing to trend down, will need to hold eliquis and evaluate for source of bleeding. Patient will remain on acute today - anticipate d/c home later this week (possibly Sunday-) depending on how he does clinically. Family will be visiting him today. See detailed plans as above. He is on eliquis so does not require other VTE prophylaxis. Code status is DNR/DNI/comfort measures + antibiotics.
[2020-10-25] MEDS: Insulin Lispro 100 Units/ML 3 ML Vial SUBCUT SCH (17:19)
--- NOTE | 2020-10-25 18:46 | PCM.SN.2 ---
- Free Text/Narrative Note: Notified by nurse patient was back in a-fib with RVR (rates in the 120-130 range consistently, at times up to the 150's-160's only lasting seconds). He is asymptomatic and BP is >90 systolic. Therefore, will monitor for now. He had the same issue on admission and converted without any intervention. If he gets symptomatic, has sustained HR >150, or is still in a-fib by 7:30, they will call back and we will reassess. U/A this pm was only mildly positive, likely from the trauma of catheter exchange. As outlined this morning, suspicion for UTI is low given this grew pseudomonas not treated with current antibiotics and he is clinically improving.
[2020-10-25] MEDS ORDERED: Metoprolol Tartrate 25 MG Tab PO STA (19:34)
[2020-10-25] MEDS ORDERED: Metoprolol Tartrate 25 MG Tab PO ONE (22:02)
[2020-10-26 07:40] LABS: CHLORIDE,CL 110 mmol/L (98-107); SODIUM,NA 143 mmol/L (136-145)
[2020-10-26 07:49] LABS: ANION GAP 9.4 mmol/L (5-15)
[2020-10-26] MEDS: Sodium Chloride 0.45% 1,000 ML IV SCH (08:44)
[2020-10-26] MEDS: Valproic Acid 250 MG/5 ML Soln 5 ML UD Cup PO SCH ×2 (08:49→20:29)
[2020-10-26] MEDS: ClonazePAM 0.5 MG Tab PO SCH (08:49)
[2020-10-26] MEDS: Apixaban 2.5 MG Tab PO SCH ×2 (08:50→20:26)
[2020-10-26] MEDS: Levothyroxine 112 MCG Tab PO SCH (08:50)
[2020-10-26] MEDS: Finasteride 5 MG Tab PO SCH (08:50)
[2020-10-26] MEDS: Acetaminophen 325 MG Tab PO SCH ×3 (08:50→20:24)
[2020-10-26] MEDS: levETIRAcetam 500 MG Tab PO SCH ×2 (08:50→20:26)
[2020-10-26] MEDS: Sodium Chloride 0.9% 10 ML Syringe FLUSH PRN (08:50)
[2020-10-26] MEDS: OLANZapine 10 MG Tab PO SCH ×2 (08:50→20:26)
[2020-10-26] MEDS: Piperacillin/Tazobactam 3.375 GM in Sodium Chloride 0.9% 100 ML IV SCH (08:52)
[2020-10-26] MEDS: Midodrine 5 MG Tab PO SCH ×3 (08:54→18:03)
[2020-10-26] MEDS: Miconazole 2% Top Powder 45 GM Container TOP SCH ×2 (08:55→20:39)
[2020-10-26] MEDS: Albuterol/Ipratropium 3.0-0.5 MG/3 ML Neb Soln INH SCH ×4 (08:55→20:28)
[2020-10-26] MEDS: Budesonide 0.5 MG/2 ML Neb Susp NEB SCH ×2 (08:55→20:28)
[2020-10-26] MEDS: Insulin Lispro 100 Units/ML 3 ML Vial SUBCUT SCH ×3 (09:01→17:42)
--- NOTE | 2020-10-26 09:39 | PCM.PN ---
- General Info Date of Service: 10/26/20 Subjective Update: 69 yo male hospital day #4 admitted with sepsis secondary to HCAP. Patient is more alert this morning. States he still is not feeling well but is not able to say why. Coughs only after neb treatments. Has not been feeling short of breath. Denies chest pain or abdominal pain. No fevers. Appetite is good and he is eating/drinking well. - Review of Systems General: Reports: No Symptoms HEENT: Reports: No Symptoms Pulmonary: Reports: Cough. Denies: Shortness of Breath Cardiovascular: Reports: No Symptoms Gastrointestinal: Reports: No Symptoms Genitourinary: Reports: No Symptoms Musculoskeletal: Reports: No Symptoms Skin: Reports: No Symptoms Neurological: Reports: No Symptoms - Patient Data Vitals - Most Recent: Last Vital Signs Temp 36.4 C 10/26/20 01:53 Pulse 100 10/26/20 01:53 Resp 18 10/26/20 01:53 BP 95/65 10/26/20 01:53 Pulse Ox 95 10/26/20 08:00 Weight - Most Recent: 89.811 kg I&O - Last 24 Hours: Intake & Output 10/25/20 10/26/20 10/26/20 22:59 06:59 14:59 Intake Total 1270 120 Output Total 720 Balance 550 120 Lab Results Last 24 Hours: Laboratory Results - last 24 hr 10/25/20 10/25/20 10/25/20 Range/Units 12:51 13:22 15:30 WBC 7.9 (4.0-10.0) x10^3/uL RBC 3.43 L (4.5-6.0) x10^6/uL Hgb 9.7 L (14.0-18.0) g/dL Hct 32.7 L (40.0-52.0) % MCV 95.3 H (78.0-93.0) fL MCH 28.3 (26.0-32.0) pg MCHC 29.7 L (32.0-36.0) g/dL RDW Coeff of Shira 14.9 (10.0-15.0) % Plt Count 117 L (130-400) x10^3/uL Neut % (Auto) 79.9 (50.0-80.0) % Lymph % (Auto) 13.7 L (25.0-50.0) % [place] % (Auto) 4.4 (2.0-11.0) % Eos % (Auto) 1.9 (0.0-4.0) % Baso % (Auto) 0.1 L (0.2-1.2) % Sodium (136-145) mmol/L Potassium (3.5-5.1) mmol/L Chloride (98-107) mmol/L Carbon Dioxide (21-32) mmol/L Anion Gap (5-15) mmol/L BUN (7-18) mg/dL Creatinine (0.70-1.30) mg/dL Est Cr Clr Drug Dosing mL/min Estimated GFR (MDRD) Glucose (74-106) mg/dL POC Glucose 130 H (74-106) mg/dL Calcium (8.5-10.1) mg/dL C-Reactive Protein (<=0.9) mg/dL Urine Color Yellow (YELLOW) Urine Appearance Cloudy H (CLEAR) Urine pH 6.0 (5.0-8.0) Ur Specific [place] 1.025 Urine Protein 100 H (NEGATIVE) mg/dL Urine Glucose (UA) Negative (NEGATIVE) mg/dL Urine Ketones Trace H (NEGATIVE) mg/dL Urine Occult Blood Moderate H (NEGATIVE) Urine Nitrite Negative (NEGATIVE) Urine Bilirubin Negative (NEGATIVE) Urine Urobilinogen 1.0 (0.2) EU/dL Ur Leukocyte Esterase Small H (NEGATIVE) Urine RBC 10-20 H (NOT SEEN) /HPF Urine WBC 10-20 H (NOT SEEN) /HPF Ur Squamous Epith Cells Rare (NEGATIVE) /HPF Urine Bacteria Rare (NEGATIVE) /HPF Urine Mucus Rare H (NEGATIVE) /LPF Vancomycin Trough (10.0-20.0) ug/mL 10/25/20 10/25/20 10/26/20 Range/Units 16:55 20:01 06:08 WBC (4.0-10.0) x10^3/uL RBC (4.5-6.0) x10^6/uL Hgb (14.0-18.0) g/dL Hct (40.0-52.0) % MCV (78.0-93.0) fL MCH (26.0-32.0) pg MCHC (32.0-36.0) g/dL RDW Coeff of Shira (10.0-15.0) % Plt Count (130-400) x10^3/uL Neut % (Auto) (50.0-80.0) % Lymph % (Auto) (25.0-50.0) % [place] % (Auto) (2.0-11.0) % Eos % (Auto) (0.0-4.0) % Baso % (Auto) (0.2-1.2) % Sodium (136-145) mmol/L Potassium (3.5-5.1) mmol/L Chloride (98-107) mmol/L Carbon Dioxide (21-32) mmol/L Anion Gap (5-15) mmol/L BUN (7-18) mg/dL Creatinine (0.70-1.30) mg/dL Est Cr Clr Drug Dosing mL/min Estimated GFR (MDRD) Glucose (74-106) mg/dL POC Glucose 65 L 148 H 82 (74-106) mg/dL Calcium (8.5-10.1) mg/dL C-Reactive Protein (<=0.9) mg/dL Urine Color (YELLOW) Urine Appearance (CLEAR) Urine pH (5.0-8.0) Ur Specific [place] Urine Protein (NEGATIVE) mg/dL Urine Glucose (UA) (NEGATIVE) mg/dL Urine Ketones (NEGATIVE) mg/dL Urine Occult Blood (NEGATIVE) Urine Nitrite (NEGATIVE) Urine Bilirubin (NEGATIVE) Urine Urobilinogen (0.2) EU/dL Ur Leukocyte Esterase (NEGATIVE) Urine RBC (NOT SEEN) /HPF Urine WBC (NOT SEEN) /HPF Ur Squamous Epith Cells (NEGATIVE) /HPF Urine Bacteria (NEGATIVE) /HPF Urine Mucus (NEGATIVE) /LPF Vancomycin Trough (10.0-20.0) ug/mL 10/26/20 10/26/20 10/26/20 Range/Units 06:37 06:37 08:02 WBC 7.6 (4.0-10.0) x10^3/uL RBC 3.74 L (4.5-6.0) x10^6/uL Hgb 10.9 L (14.0-18.0) g/dL Hct 34.9 L (40.0-52.0) % MCV 93.3 H (78.0-93.0) fL MCH 29.1 (26.0-32.0) pg MCHC 31.2 L (32.0-36.0) g/dL RDW Coeff of Shira 14.9 (10.0-15.0) % Plt Count 145 (130-400) x10^3/uL Neut % (Auto) 77.0 (50.0-80.0) % Lymph % (Auto) 15.2 L (25.0-50.0) % [place] % (Auto) 4.7 (2.0-11.0) % Eos % (Auto) 3.0 (0.0-4.0) % Baso % (Auto) 0.1 L (0.2-1.2) % Sodium 143 (136-145) mmol/L Potassium 3.4 L (3.5-5.1) mmol/L Chloride 110 H (98-107) mmol/L Carbon Dioxide 27 (21-32) mmol/L Anion Gap 9.4 (5-15) mmol/L BUN 13 (7-18) mg/dL Creatinine 0.5 L (0.70-1.30) mg/dL Est Cr Clr Drug Dosing 155.20 mL/min Estimated GFR (MDRD) > 60 Glucose 79 (74-106) mg/dL POC Glucose (74-106) mg/dL Calcium 8.4 L (8.5-10.1) mg/dL C-Reactive Protein 22.8 H (<=0.9) mg/dL Urine Color (YELLOW) Urine Appearance (CLEAR) Urine pH (5.0-8.0) Ur Specific [place] Urine Protein (NEGATIVE) mg/dL Urine Glucose (UA) (NEGATIVE) mg/dL Urine Ketones (NEGATIVE) mg/dL Urine Occult Blood (NEGATIVE) Urine Nitrite (NEGATIVE) Urine Bilirubin (NEGATIVE) Urine Urobilinogen (0.2) EU/dL Ur Leukocyte Esterase (NEGATIVE) Urine RBC (NOT SEEN) /HPF Urine WBC (NOT SEEN) /HPF Ur Squamous Epith Cells (NEGATIVE) /HPF Urine Bacteria (NEGATIVE) /HPF Urine Mucus (NEGATIVE) /LPF Vancomycin Trough 14.2 (10.0-20.0) ug/mL Gerber Results Last 24 Hours: Microbiology 10/24/20 13:14 Gram Stain - Final Sputum - Expectorated Sputum Culture - Final Staphylococcus Coagulase Neg 10/23/20 17:19 Aerobic Blood Culture - Preliminary Blood - Venous - Lab Draw NO GROWTH AFTER 2 DAYS Anaerobic Blood Culture - Preliminary NO GROWTH AFTER 2 DAYS 10/23/20 16:55 Aerobic Blood Culture - Preliminary Blood - Venous NO GROWTH AFTER 2 DAYS Anaerobic Blood Culture - Preliminary NO GROWTH AFTER 2 DAYS 10/23/20 17:04 Urine Culture - Final Urine, Muro Cath ([place]) Pseudomonas Aeruginosa Med Orders - Current: Current Medications Acetaminophen (Tylenol) 650 mg PO Q4H PRN PRN Reason: Pain (Mild 1-3)/fever Acetaminophen (Tylenol) 975 mg PO TID [facility] Last Admin: 10/26/20 08:50 Dose: 975 mg Documented by: Albuterol/Ipratropium (Duoneb 3.0-0.5 Mg/3 Ml) 3 ml INH QIDRT [facility] Last Admin: 10/26/20 08:55 Dose: Not Given Documented by: Apixaban (Eliquis) 5 mg PO BID [facility] Last Admin: 10/26/20 08:50 Dose: 5 mg Documented by: Budesonide (Pulmicort) 0.5 mg NEB BIDRT [facility] Last Admin: 10/26/20 08:55 Dose: Not Given Documented by: Clonazepam (Klonopin) 0.5 mg PO DAILY [facility] Last Admin: 10/26/20 08:49 Dose: 0.5 mg Documented by: Dextrose/Water (Dextrose 50% In Water) 50 ml IV ASDIRECTED PRN PRN Reason: Hypoglycemia Finasteride (Proscar) 5 mg PO DAILY [facility] Last Admin: 10/26/20 08:50 Dose: 5 mg Documented by: Flumazenil (Romazicon) 0.2 mg IVPUSH ASDIRECTED PRN PRN Reason: Respiratory Depression Glucagon (Glucagen) 1 mg IM ASDIRECTED PRN PRN Reason: Hypoglycemia Hydromorphone HCl (Dilaudid) 0.25 mg IVPUSH Q2H PRN PRN Reason: Pain (severe 7-10) Piperacillin Sod/Tazobactam (Sod 3.375 gm/ Sodium Chloride) 100 mls @ 25 mls/hr IV Q8H [facility] Last Admin: 10/26/20 08:52 Dose: Not Given Documented by: Vancomycin HCl 1.25 gm/ Sodium (Chloride) 250 mls @ 200 mls/hr IV Q12H [facility] Last Admin: 10/26/20 08:45 Dose: 200 mls/hr Documented by: Sodium Chloride (Sodium Chloride 0.45%) 1,000 mls @ 100 mls/hr IV ASDIRECTED [facility] Last Admin: 10/26/20 08:44 Dose: 100 mls/hr Documented by: Insulin Human Lispro (Humalog) 0 unit SUBCUT TIDMEALS [facility]; Protocol Last Admin: 10/26/20 09:01 Dose: Not Given Documented by: Levetiracetam (Keppra) 500 mg PO BID [facility] Last Admin: 10/26/20 08:50 Dose: 500 mg Documented by: Levothyroxine Sodium (Levothyroxine) 112 mcg PO DAILY [facility] Last Admin: 10/26/20 08:50 Dose: 112 mcg Documented by: Lorazepam (Ativan) 1 mg IVPUSH Q4H PRN PRN Reason: Seizures Magnesium Hydroxide (Milk Of Magnesia) 30 ml PO DAILY PRN PRN Reason: Constipation Miconazole (Desenex 2%) 0 gm TOP BID [facility] Last Admin: 10/26/20 08:55 Dose: 1 applic Documented by: Midodrine (Midodrine) 5 mg PO TIDAC [facility] Last Admin: 10/26/20 08:54 Dose: 5 mg Documented by: Non-Formulary Medication (Fluvoxamine Maleate [Fluvoxamine Maleate]) 100 mg PO BID [facility] Olanzapine (Zyprexa) 20 mg PO BID [facility] Last Admin: 10/26/20 08:50 Dose: 20 mg Documented by: Ondansetron HCl (Zofran) 4 mg IV Q4H PRN PRN Reason: Nausea/Vomiting Polyethylene Glycol (Miralax) 17 gm PO DAILY PRN PRN Reason: Constipation Sodium Chloride (Saline Flush) 10 ml FLUSH ASDIRECTED PRN PRN Reason: Keep Vein Open Last Admin: 10/26/20 08:50 Dose: 10 ml Documented by: Valproic Acid (Depakene) 1,250 mg PO DAILY [facility] Last Admin: 10/26/20 08:49 Dose: 1,250 mg Documented by: Valproic Acid (Depakene) 1,500 mg PO DAILY@2100 [facility] Last Admin: 10/25/20 21:21 Dose: 1,500 mg Documented by: Vancomycin HCl (Pharmacy To Dose - Vancomycin) 1 dose .XX ASDIRECTED [facility] Discontinued Medications Budesonide (Pulmicort) 0.5 mg NEB BID [facility] Last Admin: 10/23/20 20:50 Dose: Not Given Documented by: Ceftriaxone Sodium (Rocephin) 2 gm IV STAT ONE Stop: 10/23/20 17:00 Last Admin: 10/23/20 17:10 Dose: 2 gm Documented by: Hydrocortisone Sodium Succinate (Solu-Cortef) 100 mg IVPUSH Q6H [facility] Last Admin: 10/24/20 04:21 Dose: 100 mg Documented by: Sodium Chloride (Normal Saline) 1,000 mls @ 1,000 mls/hr IV BOLUS ONE; Protocol Stop: 10/23/20 17:58 Last Admin: 10/23/20 16:55 Dose: 1,000 mls/hr Documented by: Vancomycin HCl 1.75 gm/ Premix 350 mls @ 200 mls/hr IV STAT ONE Stop: 10/23/20 19:25 Last Admin: 10/23/20 18:15 Dose: Not Given Documented by: Sodium Chloride (Normal Saline) 500 mls @ 500 mls/hr IV ONETIME ONE Stop: 10/23/20 19:53 Last Admin: 10/23/20 19:27 Dose: Not Given Documented by: Metronidazole 500 mg/ Premix 100 mls @ 100 mls/hr IV Q8H [facility] Vancomycin HCl 1 gm/ Sodium (Chloride) 250 mls @ 250 mls/hr IV Q12H [facility] Last Admin: 10/23/20 20:50 Dose: Not Given Documented by: Sodium Chloride (Normal Saline) 1,000 mls @ 200 mls/hr IV ASDIRECTED [facility] Last Admin: 10/24/20 04:22 Dose: 200 mls/hr Documented by: Sodium Chloride (Normal Saline) 1,000 mls @ 500 mls/hr IV ONETIME ONE Stop: 10/23/20 20:53 Last Admin: 10/23/20 19:32 Dose: 500 mls/hr Documented by: Vancomycin HCl 1.25 gm/ Sodium (Chloride) 250 mls @ 200 mls/hr IV Q12H [facility] Last Admin: 10/23/20 23:18 Dose: Not Given Documented by: Levetiracetam 500 mg/ Premix 100 mls @ 400 mls/hr IV BID [facility] Last Admin: 10/24/20 10:26 Dose: 400 mls/hr Documented by: Insulin Glargine (Lantus) 8 unit SUBCUT DAILY [facility] Last Admin: 10/25/20 09:11 Dose: Not Given Documented by: Levetiracetam (Keppra) 500 mg PO BID [facility] Last Admin: 10/23/20 21:59 Dose: Not Given Documented by: Metoprolol Tartrate (Lopressor) 12.5 mg PO ONETIME STA Stop: 10/25/20 19:35 Last Admin: 10/25/20 19:46 Dose: 12.5 mg Documented by: Metoprolol Tartrate (Lopressor) 12.5 mg PO ONETIME ONE Stop: 10/25/20 22:03 Last Admin: 10/25/20 22:32 Dose: 12.5 mg Documented by: Sodium Chloride (Saline Flush) 10 ml FLUSH ASDIRECTED PRN PRN Reason: Keep Vein Open Last Admin: 10/25/20 11:18 Dose: 10 ml Documented by: Vancomycin HCl (Vancomycin) Confirm Administered Dose 1 gm .ROUTE .STK-MED ONE Stop: 10/23/20 18:11 Last Admin: 10/23/20 18:14 Dose: 1 gm Documented by: Vancomycin HCl (Vancomycin) Confirm Administered Dose 750 mg .ROUTE .STK-MED ONE Stop: 10/23/20 18:12 Last Admin: 10/23/20 18:14 Dose: 750 mg Documented by: - Exam General: Alert, Cooperative, No Acute Distress HEENT: Mucous Membr. Moist/[place] Neck: Supple, Trachea Midline, No Thyromegaly. No: Lymphadenopathy Lungs: Normal Respiratory Effort, Crackles (bilaterally but less prominent than yesterday) Cardiovascular: Regular Rate, Regular Rhythm, No Murmurs GI/Abdominal Exam: Normal Bowel Sounds, Soft, Non-Tender, No Organomegaly, No Distention, No Mass Extremities: Non-Tender, No Pedal Edema, Normal Capillary Refill Peripheral Pulses: 2+: Radial (L), Radial (R) Skin: Warm, Dry Neurological: No New Focal Deficit - Patient Data Lab Results Last 24 hrs: Laboratory Results - last 24 hr 10/25/20 10/25/20 10/25/20 Range/Units 12:51 13:22 15:30 WBC 7.9 (4.0-10.0) x10^3/uL RBC 3.43 L (4.5-6.0) x10^6/uL Hgb 9.7 L (14.0-18.0) g/dL Hct 32.7 L (40.0-52.0) % MCV 95.3 H (78.0-93.0) fL MCH 28.3 (26.0-32.0) pg MCHC 29.7 L (32.0-36.0) g/dL RDW Coeff of Shira 14.9 (10.0-15.0) % Plt Count 117 L (130-400) x10^3/uL Neut % (Auto) 79.9 (50.0-80.0) % Lymph % (Auto) 13.7 L (25.0-50.0) % [place] % (Auto) 4.4 (2.0-11.0) % Eos % (Auto) 1.9 (0.0-4.0) % Baso % (Auto) 0.1 L (0.2-1.2) % Sodium (136-145) mmol/L Potassium (3.5-5.1) mmol/L Chloride (98-107) mmol/L Carbon Dioxide (21-32) mmol/L Anion Gap (5-15) mmol/L BUN (7-18) mg/dL Creatinine (0.70-1.30) mg/dL Est Cr Clr Drug Dosing mL/min Estimated GFR (MDRD) Glucose (74-106) mg/dL POC Glucose 130 H (74-106) mg/dL Calcium (8.5-10.1) mg/dL C-Reactive Protein (<=0.9) mg/dL Urine Color Yellow (YELLOW) Urine Appearance Cloudy H (CLEAR) Urine pH 6.0 (5.0-8.0) Ur Specific [place] 1.025 Urine Protein 100 H (NEGATIVE) mg/dL Urine Glucose (UA) Negative (NEGATIVE) mg/dL Urine Ketones Trace H (NEGATIVE) mg/dL Urine Occult Blood Moderate H (NEGATIVE) Urine Nitrite Negative (NEGATIVE) Urine Bilirubin Negative (NEGATIVE) Urine Urobilinogen 1.0 (0.2) EU/dL Ur Leukocyte Esterase Small H (NEGATIVE) Urine RBC 10-20 H (NOT SEEN) /HPF Urine WBC 10-20 H (NOT SEEN) /HPF Ur Squamous Epith Cells Rare (NEGATIVE) /HPF Urine Bacteria Rare (NEGATIVE) /HPF Urine Mucus Rare H (NEGATIVE) /LPF Vancomycin Trough (10.0-20.0) ug/mL 10/25/20 10/25/20 10/26/20 Range/Units 16:55 20:01 06:08 WBC (4.0-10.0) x10^3/uL RBC (4.5-6.0) x10^6/uL Hgb (14.0-18.0) g/dL Hct (40.0-52.0) % MCV (78.0-93.0) fL MCH (26.0-32.0) pg MCHC (32.0-36.0) g/dL RDW Coeff of Shira (10.0-15.0) % Plt Count (130-400) x10^3/uL Neut % (Auto) (50.0-80.0) % Lymph % (Auto) (25.0-50.0) % [place] % (Auto) (2.0-11.0) % Eos % (Auto) (0.0-4.0) % Baso % (Auto) (0.2-1.2) % Sodium (136-145) mmol/L Potassium (3.5-5.1) mmol/L Chloride (98-107) mmol/L Carbon Dioxide (21-32) mmol/L Anion Gap (5-15) mmol/L BUN (7-18) mg/dL Creatinine (0.70-1.30) mg/dL Est Cr Clr Drug Dosing mL/min Estimated GFR (MDRD) Glucose (74-106) mg/dL POC Glucose 65 L 148 H 82 (74-106) mg/dL Calcium (8.5-10.1) mg/dL C-Reactive Protein (<=0.9) mg/dL Urine Color (YELLOW) Urine Appearance (CLEAR) Urine pH (5.0-8.0) Ur Specific [place] Urine Protein (NEGATIVE) mg/dL Urine Glucose (UA) (NEGATIVE) mg/dL Urine Ketones (NEGATIVE) mg/dL Urine Occult Blood (NEGATIVE) Urine Nitrite (NEGATIVE) Urine Bilirubin (NEGATIVE) Urine Urobilinogen (0.2) EU/dL Ur Leukocyte Esterase (NEGATIVE) Urine RBC (NOT SEEN) /HPF Urine WBC (NOT SEEN) /HPF Ur Squamous Epith Cells (NEGATIVE) /HPF Urine Bacteria (NEGATIVE) /HPF Urine Mucus (NEGATIVE) /LPF Vancomycin Trough (10.0-20.0) ug/mL 10/26/20 10/26/20 10/26/20 Range/Units 06:37 06:37 08:02 WBC 7.6 (4.0-10.0) x10^3/uL RBC 3.74 L (4.5-6.0) x10^6/uL Hgb 10.9 L (14.0-18.0) g/dL Hct 34.9 L (40.0-52.0) % MCV 93.3 H (78.0-93.0) fL MCH 29.1 (26.0-32.0) pg MCHC 31.2 L (32.0-36.0) g/dL RDW Coeff of Shira 14.9 (10.0-15.0) % Plt Count 145 (130-400) x10^3/uL Neut % (Auto) 77.0 (50.0-80.0) % Lymph % (Auto) 15.2 L (25.0-50.0) % [place] % (Auto) 4.7 (2.0-11.0) % Eos % (Auto) 3.0 (0.0-4.0) % Baso % (Auto) 0.1 L (0.2-1.2) % Sodium 143 (136-145) mmol/L Potassium 3.4 L (3.5-5.1) mmol/L Chloride 110 H (98-107) mmol/L Carbon Dioxide 27 (21-32) mmol/L Anion Gap 9.4 (5-15) mmol/L BUN 13 (7-18) mg/dL Creatinine 0.5 L (0.70-1.30) mg/dL Est Cr Clr Drug Dosing 155.20 mL/min Estimated GFR (MDRD) > 60 Glucose 79 (74-106) mg/dL POC Glucose (74-106) mg/dL Calcium 8.4 L (8.5-10.1) mg/dL C-Reactive Protein 22.8 H (<=0.9) mg/dL Urine Color (YELLOW) Urine Appearance (CLEAR) Urine pH (5.0-8.0) Ur Specific [place] Urine Protein (NEGATIVE) mg/dL Urine Glucose (UA) (NEGATIVE) mg/dL Urine Ketones (NEGATIVE) mg/dL Urine Occult Blood (NEGATIVE) Urine Nitrite (NEGATIVE) Urine Bilirubin (NEGATIVE) Urine Urobilinogen (0.2) EU/dL Ur Leukocyte Esterase (NEGATIVE) Urine RBC (NOT SEEN) /HPF Urine WBC (NOT SEEN) /HPF Ur Squamous Epith Cells (NEGATIVE) /HPF Urine Bacteria (NEGATIVE) /HPF Urine Mucus (NEGATIVE) /LPF Vancomycin Trough 14.2 (10.0-20.0) ug/mL Result Diagrams: 10/26/20 06:37 10/26/20 06:37 Gerber Results Last 24 hrs: Microbiology 10/24/20 13:14 Gram Stain - Final Sputum - Expectorated Sputum Culture - Final Staphylococcus Coagulase Neg 10/23/20 17:19 Aerobic Blood Culture - Preliminary Blood - Venous - Lab Draw NO GROWTH AFTER 2 DAYS Anaerobic Blood Culture - Preliminary NO GROWTH AFTER 2 DAYS 10/23/20 16:55 Aerobic Blood Culture - Preliminary Blood - Venous NO GROWTH AFTER 2 DAYS Anaerobic Blood Culture - Preliminary NO GROWTH AFTER 2 DAYS 10/23/20 17:04 Urine Culture - Final Urine, Muro Cath ([place]) Pseudomonas Aeruginosa Sepsis Event Note - Evaluation Sepsis Screening Result: No Definite Risk - Focused Exam Vital Signs: Vital Signs Temp Pulse Pulse Resp BP BP Pulse Ox 10/26/20 08:00 10/26/20 01:53 36.4 C 100 18 95/65 96 10/25/20 22:32 140 H 90/54 L 10/25/20 22:00 36.7 C 94 20 90/54 L 98 Pulse Ox 10/26/20 08:00 95 10/26/20 01:53 10/25/20 22:32 10/25/20 22:00 - Problem List & Annotations (1) Sepsis SNOMED Code(s): 76341222 Code(s): A41.9 - SEPSIS, UNSPECIFIED ORGANISM Status: Acute Priority: High Current Visit: Yes Qualifiers: Sepsis type: sepsis due to unspecified organism Sepsis acute organ d ysfunction status: unspecified Qualified Code(s): A41.9 - Sepsis, unspecified organism (2) Hypotension SNOMED Code(s): 17832761 Code(s): I95.9 - HYPOTENSION, UNSPECIFIED Status: Chronic Current Visit: No Qualifiers: Hypotension type: idiopathic hypotension Qualified Code(s): I95.0 - Idiopathic hypotension (3) Healthcare-associated pneumonia SNOMED Code(s): 128125690, 205731061 Code(s): J18.9 - PNEUMONIA, UNSPECIFIED ORGANISM Status: Acute Current Visit: Yes (4) Palliative care patient SNOMED Code(s): 924566259, 184144869 Code(s): Z51.5 - ENCOUNTER FOR PALLIATIVE CARE Status: Acute Current Visit: Yes (5) Atrial fibrillation SNOMED Code(s): 06200188 Code(s): I48.91 - UNSPECIFIED ATRIAL FIBRILLATION Status: Chronic Current Visit: Yes Qualifiers: Atrial fibrillation type: persistent (not longstanding) Qualified Code(s): I48.19 - Other persistent atrial fibrillation; I48.1 - Persistent atrial fibrillation (6) Urine culture positive SNOMED Code(s): 021461256 Code(s): R82.79 - OTHER ABNORMAL FINDINGS ON MICROBIOLOG EXAMINATION OF URINE Status: Acute Current Visit: Yes (7) BPH (benign prostatic hyperplasia) SNOMED Code(s): 323740790 Code(s): N40.0 - BENIGN PROSTATIC HYPERPLASIA WITHOUT LOWER URINRY TRACT SYMP Status: Acute Current Visit: Yes Qualifiers: Lower urinary tract symptom presence: symptoms present Lower urinary tract symptom detail: urinary retention Qualified Code(s): N40.1 - Benign prostatic hyperplasia with lower urinary tract symptoms; R33.8 - Other retention of urine (8) Indwelling urinary catheter present SNOMED Code(s): 989050324, 909481683 Code(s): Z96.0 - PRESENCE OF UROGENITAL IMPLANTS Status: Chronic Current Visit: Yes (9) Sacral wound SNOMED Code(s): 685206895, 243512968 Code(s): S31.000A - UNSP OPN WND LOW BACK AND PELV W/O PENET RETROPERITON, INIT Status: Chronic Current Visit: Yes Qualifiers: Encounter type: subsequent encounter Qualified Code(s): S31.000D - Unspecified open wound of lower back and pelvis without penetration into retroperitoneum, subsequent encounter (10) Osteomyelitis of sacrum SNOMED Code(s): 082230752, 157701862 Code(s): M46.28 - OSTEOMYELITIS OF VERTEBRA, SACRAL AND SACROCOCCYGEAL REGION Status: Resolved Current Visit: No (11) Diabetes SNOMED Code(s): 81753494 Code(s): E11.9 - TYPE 2 DIABETES MELLITUS WITHOUT COMPLICATIONS Status: Chronic Current Visit: Yes Qualifiers: Diabetes mellitus type: type 2 Diabetes mellitus jail insulin use: without financial supervisor use Diabetes mellitus complication status: without complication Qualified Code(s): E11.9 - Type 2 diabetes mellitus without complications (12) COPD (chronic obstructive pulmonary disease) SNOMED Code(s): 21378350 Code(s): J44.9 - CHRONIC OBSTRUCTIVE PULMONARY DISEASE, UNSPECIFIED Status: Chronic Current Visit: Yes Qualifiers: COPD type: unspecified COPD Qualified Code(s): J44.9 - Chronic obstructive pulmonary disease, unspecified (13) Schizoaffective disorder SNOMED Code(s): 88444083 Code(s): F25.9 - SCHIZOAFFECTIVE DISORDER, UNSPECIFIED Status: Chronic Current Visit: Yes Qualifiers: Schizoaffective disorder type: unspecified Qualified Code(s): F25.9 - Schizoaffective disorder, unspecified (14) Seizure disorder SNOMED Code(s): 268744651 Code(s): G40.909 - EPILEPSY, UNSP, NOT INTRACTABLE, WITHOUT STATUS EPILEPTICUS Status: Chronic Current Visit: Yes (15) Anemia SNOMED Code(s): 597661982 Code(s): D64.9 - ANEMIA, UNSPECIFIED Status: Acute Current Visit: Yes Qualifiers: Anemia type: unspecified type Qualified Code(s): D64.9 - Anemia, unspecified (16) Hypernatremia SNOMED Code(s): 627995832 Code(s): E87.0 - HYPEROSMOLALITY AND HYPERNATREMIA Status: Acute Priority: High Current Visit: No Onset Date: 07/28/15 - Problem List Review Problem List Initiated/Reviewed/Updated: Yes - My Orders Last 24 Hours: My Active Orders 10/25/20 18:00 Insulin Lispro [HumaLOG] See Protocol SUBCUT TIDMEALS 10/26/20 09:30 Metoprolol Tartrate [Lopressor] 12.5 mg PO BID 10/26/20 20:00 Amoxicillin/Clavulanate K [Augmentin 875 MG/125 MG] 1 tab PO BID Doxycycline [Vibramycin] 100 mg PO BID - Assessment Assessment:: 69 yo male hospital day #4 admitted with sepsis secondary to pneumonia. Is continuing to improve both clinically and in terms of his labs. He is still requiring a fair amount of oxygen but these requirements have remained stable. - Plan Plan:: #1 Severe sepsis, secondary to #3, resolved #2 Hypotension, acute on chronic, resolved #3 Healthcare associated Pneumonia #4 Palliative care patient - Patient is doing much better today. Vitals have stabilized (aside from related to RVR), CRP is downtrending, and WBC remains normal. O2 requirements remain stable. - BP's much better in the past 24 hours. Continue midodrine only for now. - He has been on maintenance IV fluids. However, he is much more alert today and able to eat/drink adequately; therefore, will d/c these after current bag is done. - Blood cultures no growth to date. Urine and sputum cultures positive. Urine with pseudomonas (felt to be colonized) and sputum with staph (not felt to be correct pathogen given location of infection). - Therefore, no availability for targeted antibiotics. Given he is doing much better today, will discontinue vancomycin and zosyn after most recent doses. Will instead start augmentin and doxycycline tonight. #5 A-fib with RVR - Patient has been in and out of a-fib consistently over the past 24 hours. - Did get 2 doses of PO metoprolol last night, which he tolerated without any issues. - Therefore, will schedule metoprolol tartrate BID. #6 Urine culture positive for pseudomonas #7 BPH with urinary retention #8 Chronic indwelling urinary catheter - Has not really had concerns for UTI given significant pneumonia. - Culture did grow pseudomonas, which is resistant to the antibiotics he is on. Given he is clinically improving, really less likely that the UTI is an infection and more likely this is colonization. - U/A showed mild pyuria but he has continued to improve on his current antibiotics, further supporting the likelihood that the pseudomonas is colonized rather than infectious. 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 Not likely to be a major contributor to his current illness. - Wound clinic appointments scheduled. - Wound vac changed yesterday without incident. #11 Diabetes - Glucoses acceptable without medications. - Continue QID glucose changes. - He does have low dose correction scale with meals if need be. #12 COPD #13 Schizoaffective Disorder #14 Seizure disorder - He is swallowing his pills without any issues. - Home medications continued. #15 Hypernatremia, resolved #15 Anemia - Sodium normal today. - Hgb stable this am. - Continue to monitor daily. Patient will remain on acute today - anticipate d/c home later this week (possibly Sunday-) depending on how he does clinically. Family at bedside this morning is updated. See detailed plans as above. He is on eliquis so does not require other VTE prophylaxis. Code status is DNR/DNI/comfort measures + antibiotics.
[2020-10-26] MEDS: Metoprolol Tartrate 25 MG Tab PO SCH ×2 (09:48→20:27)
[2020-10-26] MEDS: FLUVOXAMINE MALEATE 100 MG PO SCH ×2 (13:18→20:30)
[2020-10-26] MEDS: Amoxicillin/Clavulanate K 875-125 MG Tab PO SCH (18:03)
[2020-10-26] MEDS: Doxycycline 100 MG Cap PO SCH (20:23)
[2020-10-27] MEDS: Budesonide 0.5 MG/2 ML Neb Susp NEB SCH ×2 (06:03→20:39)
[2020-10-27] MEDS: Albuterol/Ipratropium 3.0-0.5 MG/3 ML Neb Soln INH SCH ×4 (06:03→20:39)
[2020-10-27] MEDS: Midodrine 5 MG Tab PO SCH ×3 (06:04→17:50)
[2020-10-27 07:22] LABS: CHLORIDE,CL 111 mmol/L (98-107); SODIUM,NA 147 mmol/L (136-145)
[2020-10-27 07:24] LABS: ANION GAP 7.5 mmol/L (5-15)
[2020-10-27] MEDS: Valproic Acid 250 MG/5 ML Soln 5 ML UD Cup PO SCH ×2 (08:24→20:41)
[2020-10-27] MEDS: Finasteride 5 MG Tab PO SCH (08:24)
[2020-10-27] MEDS: levETIRAcetam 500 MG Tab PO SCH ×2 (08:24→20:38)
[2020-10-27] MEDS: OLANZapine 10 MG Tab PO SCH ×2 (08:24→20:38)
[2020-10-27] MEDS: Amoxicillin/Clavulanate K 875-125 MG Tab PO SCH ×2 (08:24→17:50)
[2020-10-27] MEDS: Acetaminophen 325 MG Tab PO SCH ×3 (08:24→20:41)
[2020-10-27] MEDS: Doxycycline 100 MG Cap PO SCH ×2 (08:24→20:38)
[2020-10-27] MEDS: ClonazePAM 0.5 MG Tab PO SCH (08:25)
[2020-10-27] MEDS: Apixaban 2.5 MG Tab PO SCH ×2 (08:25→20:38)
[2020-10-27] MEDS: Metoprolol Tartrate 25 MG Tab PO SCH ×2 (08:25→20:45)
[2020-10-27] MEDS: Levothyroxine 112 MCG Tab PO SCH (08:25)
[2020-10-27] MEDS: FLUVOXAMINE MALEATE 100 MG PO SCH ×2 (08:30→20:38)
[2020-10-27] MEDS: Miconazole 2% Top Powder 45 GM Container TOP SCH ×2 (08:30→20:38)
--- NOTE | 2020-10-27 09:08 | CR ---
[id number] RAD/RAD Chest PA or AP 1V EXAM: FRONTAL CHEST INDICATION: FOLLOWUP PNEUMONIA. COMPARISON: October 24, 2020. DISCUSSION: Continued interval improvement in patchy left mid and lower lung infiltrates. Interval improved aeration of the left lung. Interval development of mild right mid and lower lung atelectasis or infiltrates. Normal heart size. Tortuosity of the thoracic aorta. No effusions. IMPRESSION: 1. Interval improvement in aeration of the left lung with decreasing infiltrates. 2. New mild atelectasis and/or infiltrates in the right mid and lower lung. Nathan Salavdor MD 10/27/20 0907 Thank you for allowing us to participate in the care of your patient.
--- NOTE | 2020-10-27 09:13 | PCM.PN ---
- General Info Date of Service: 10/27/20 Subjective Update: 69 yo male hospital day #5 with sepsis secondary to pneumonia. Had an uneventful night. Had a good visit with family yesterday but nursing wonders if this wore him out. He seems more tired today. He continues to state he is not feeling well. This morning he answers yes to all questions asked on ROS, raising questions about the accuracy of his history. He has been afebrile and has had no episodes of RVR. He has had 2 BM's the past 24 hours; per nursing, no melena or hematochezia. - Review of Systems Systems Review Comment:: Answers yes to all questions raising concern for accuracy of the history from the patient this morning - Patient Data Vitals - Most Recent: Last Vital Signs Temp 36.5 C 10/27/20 06:00 Pulse 71 10/27/20 08:25 Resp 20 10/27/20 06:00 BP 115/58 L 10/27/20 08:25 Pulse Ox 100 10/27/20 06:00 Weight - Most Recent: 89.811 kg I&O - Last 24 Hours: Intake & Output 10/26/20 10/27/20 10/27/20 22:59 06:59 14:59 Intake Total 1170 300 Output Total 750 1500 Balance 420 -1500 300 Lab Results Last 24 Hours: Laboratory Results - last 24 hr 10/26/20 10/26/20 10/26/20 Range/Units 11:15 17:01 21:50 WBC (4.0-10.0) x10^3/uL RBC (4.5-6.0) x10^6/uL Hgb (14.0-18.0) g/dL Hct (40.0-52.0) % MCV (78.0-93.0) fL MCH (26.0-32.0) pg MCHC (32.0-36.0) g/dL RDW Coeff of Shira (10.0-15.0) % Plt Count (130-400) x10^3/uL Neut % (Auto) (50.0-80.0) % Lymph % (Auto) (25.0-50.0) % Bailey % (Auto) (2.0-11.0) % Eos % (Auto) (0.0-4.0) % Baso % (Auto) (0.2-1.2) % Sodium (136-145) mmol/L Potassium (3.5-5.1) mmol/L Chloride (98-107) mmol/L Carbon Dioxide (21-32) mmol/L Anion Gap (5-15) mmol/L BUN (7-18) mg/dL Creatinine (0.70-1.30) mg/dL Est Cr Clr Drug Dosing mL/min Estimated GFR (MDRD) Glucose (74-106) mg/dL POC Glucose 100 74 95 (74-106) mg/dL Calcium (8.5-10.1) mg/dL C-Reactive Protein (<=0.9) mg/dL 10/27/20 10/27/20 10/27/20 Range/Units 06:19 06:45 06:45 WBC 8.3 (4.0-10.0) x10^3/uL RBC 2.81 L (4.5-6.0) x10^6/uL Hgb 8.3 L D (14.0-18.0) g/dL Hct 26.8 L (40.0-52.0) % MCV 95.4 H (78.0-93.0) fL MCH 29.5 (26.0-32.0) pg MCHC 31.0 L (32.0-36.0) g/dL RDW Coeff of Shira 14.6 (10.0-15.0) % Plt Count 147 (130-400) x10^3/uL Neut % (Auto) 74.7 (50.0-80.0) % Lymph % (Auto) 16.8 L (25.0-50.0) % Bailey % (Auto) 5.5 (2.0-11.0) % Eos % (Auto) 2.8 (0.0-4.0) % Baso % (Auto) 0.2 (0.2-1.2) % Sodium 147 H (136-145) mmol/L Potassium 3.5 (3.5-5.1) mmol/L Chloride 111 H (98-107) mmol/L Carbon Dioxide 32 (21-32) mmol/L Anion Gap 7.5 (5-15) mmol/L BUN 11 (7-18) mg/dL Creatinine 0.7 (0.70-1.30) mg/dL Est Cr Clr Drug Dosing 110.86 mL/min Estimated GFR (MDRD) > 60 Glucose 84 (74-106) mg/dL POC Glucose 86 (74-106) mg/dL Calcium 8.8 (8.5-10.1) mg/dL C-Reactive Protein 21.1 H (<=0.9) mg/dL Gerber Results Last 24 Hours: Microbiology 10/23/20 17:19 Aerobic Blood Culture - Preliminary Blood - Venous - Lab Draw NO GROWTH AFTER 3 DAYS Anaerobic Blood Culture - Preliminary NO GROWTH AFTER 3 DAYS 10/23/20 16:55 Aerobic Blood Culture - Preliminary Blood - Venous NO GROWTH AFTER 3 DAYS Anaerobic Blood Culture - Preliminary NO GROWTH AFTER 3 DAYS 10/24/20 13:14 Gram Stain - Final Sputum - Expectorated Sputum Culture - Final Staphylococcus Coagulase Neg Med Orders - Current: Current Medications Acetaminophen (Tylenol) 650 mg PO Q4H PRN PRN Reason: Pain (Mild 1-3)/fever Acetaminophen (Acetaminophen 325 Mg Tab) 975 mg PO TID [facility] Last Admin: 10/27/20 08:24 Dose: 975 mg Documented by: Albuterol/Ipratropium (Albuterol/Ipratropium 3.0-0.5 Mg/3 Ml Neb Soln) 3 ml INH QIDRT [facility] Last Admin: 10/27/20 06:03 Dose: 3 ml Documented by: Amoxicillin/Clavulanate Potassium (Amoxicillin/Clavulanate K 875-125 Mg Tab) 1 tab PO BIDMEALS [facility] Last Admin: 10/27/20 08:24 Dose: 1 tab Documented by: Apixaban (Apixaban 2.5 Mg Tab) 5 mg PO BID [facility] Last Admin: 10/27/20 08:25 Dose: 5 mg Documented by: Budesonide (Budesonide 0.5 Mg/2 Ml Neb Susp) 0.5 mg NEB BIDRT [facility] Last Admin: 10/27/20 06:03 Dose: 0.5 mg Documented by: Clonazepam (Clonazepam 0.5 Mg Tab) 0.5 mg PO DAILY [facility] Last Admin: 10/27/20 08:25 Dose: 0.5 mg Documented by: Dextrose/Water (Dextrose 50% In Water) 50 ml IV ASDIRECTED PRN PRN Reason: Hypoglycemia Doxycycline Hyclate (Doxycycline 100 Mg Cap) 100 mg PO BID [facility] Last Admin: 10/27/20 08:24 Dose: 100 mg Documented by: Finasteride (Finasteride 5 Mg Tab) 5 mg PO DAILY [facility] Last Admin: 10/27/20 08:24 Dose: 5 mg Documented by: Flumazenil (Romazicon) 0.2 mg IVPUSH ASDIRECTED PRN PRN Reason: Respiratory Depression Glucagon (Glucagen) 1 mg IM ASDIRECTED PRN PRN Reason: Hypoglycemia Hydromorphone HCl (Dilaudid) 0.25 mg IVPUSH Q2H PRN PRN Reason: Pain (severe 7-10) Sodium Chloride (Sodium Chloride 0.45%) 1,000 mls @ 100 mls/hr IV ASDIRECTED [facility] Last Admin: 10/26/20 08:44 Dose: 100 mls/hr Documented by: Insulin Human Lispro (Humalog) 0 unit SUBCUT TIDMEALS [facility]; Protocol Last Admin: 10/26/20 17:42 Dose: Not Given Documented by: Levetiracetam (Levetiracetam 500 Mg Tab) 500 mg PO BID [facility] Last Admin: 10/27/20 08:24 Dose: 500 mg Documented by: Levothyroxine Sodium (Levothyroxine 112 Mcg Tab) 112 mcg PO DAILY [facility] Last Admin: 10/27/20 08:25 Dose: 112 mcg Documented by: Lorazepam (Ativan) 1 mg IVPUSH Q4H PRN PRN Reason: Seizures Magnesium Hydroxide (Milk Of Magnesia) 30 ml PO DAILY PRN PRN Reason: Constipation Metoprolol Tartrate (Metoprolol Tartrate 25 Mg Tab) 12.5 mg PO BID [facility] Last Admin: 10/27/20 08:25 Dose: 12.5 mg Documented by: Miconazole (Desenex 2%) 0 gm TOP BID [facility] Last Admin: 10/27/20 08:30 Dose: 1 applic Documented by: Midodrine (Midodrine) 5 mg PO TIDAC [facility] Last Admin: 10/27/20 06:04 Dose: 5 mg Documented by: Fluvoxamine Maleate (100 Mg (Own Supply)) 0 mg PO BID [facility] Last Admin: 10/26/20 20:30 Dose: 100 mg Documented by: Olanzapine (Olanzapine 10 Mg Tab) 20 mg PO BID [facility] Last Admin: 10/27/20 08:24 Dose: 20 mg Documented by: Ondansetron HCl (Zofran) 4 mg IV Q4H PRN PRN Reason: Nausea/Vomiting Polyethylene Glycol (Miralax) 17 gm PO DAILY PRN PRN Reason: Constipation Sodium Chloride (Saline Flush) 10 ml FLUSH ASDIRECTED PRN PRN Reason: Keep Vein Open Last Admin: 10/26/20 08:50 Dose: 10 ml Documented by: Valproic Acid (Valproic Acid 250 Mg/5 Ml Soln 5 Ml Ud Cup) 1,250 mg PO DAILY [facility] Last Admin: 10/27/20 08:24 Dose: 1,250 mg Documented by: Valproic Acid (Depakene) 1,500 mg PO DAILY@2100 [facility] Last Admin: 10/26/20 20:29 Dose: 1,500 mg Documented by: Discontinued Medications Budesonide (Pulmicort) 0.5 mg NEB BID [facility] Last Admin: 10/23/20 20:50 Dose: Not Given Documented by: Ceftriaxone Sodium (Rocephin) 2 gm IV STAT ONE Stop: 10/23/20 17:00 Last Admin: 10/23/20 17:10 Dose: 2 gm Documented by: Hydrocortisone Sodium Succinate (Solu-Cortef) 100 mg IVPUSH Q6H [facility] Last Admin: 10/24/20 04:21 Dose: 100 mg Documented by: Sodium Chloride (Normal Saline) 1,000 mls @ 1,000 mls/hr IV BOLUS ONE; Protocol Stop: 10/23/20 17:58 Last Admin: 10/23/20 16:55 Dose: 1,000 mls/hr Documented by: Vancomycin HCl 1.75 gm/ Premix 350 mls @ 200 mls/hr IV STAT ONE Stop: 10/23/20 19:25 Last Admin: 10/23/20 18:15 Dose: Not Given Documented by: Sodium Chloride (Normal Saline) 500 mls @ 500 mls/hr IV ONETIME ONE Stop: 10/23/20 19:53 Last Admin: 10/23/20 19:27 Dose: Not Given Documented by: Metronidazole 500 mg/ Premix 100 mls @ 100 mls/hr IV Q8H [facility] Vancomycin HCl 1 gm/ Sodium (Chloride) 250 mls @ 250 mls/hr IV Q12H [facility] Last Admin: 10/23/20 20:50 Dose: Not Given Documented by: Piperacillin Sod/Tazobactam (Sod 3.375 gm/ Sodium Chloride) 100 mls @ 25 mls/hr IV Q8H [facility] Last Admin: 10/26/20 08:52 Dose: Not Given Documented by: Sodium Chloride (Normal Saline) 1,000 mls @ 200 mls/hr IV ASDIRECTED [facility] Last Admin: 10/24/20 04:22 Dose: 200 mls/hr Documented by: Sodium Chloride (Normal Saline) 1,000 mls @ 500 mls/hr IV ONETIME ONE Stop: 10/23/20 20:53 Last Admin: 10/23/20 19:32 Dose: 500 mls/hr Documented by: Vancomycin HCl 1.25 gm/ Sodium (Chloride) 250 mls @ 200 mls/hr IV Q12H [facility] Last Admin: 10/23/20 23:18 Dose: Not Given Documented by: Levetiracetam 500 mg/ Premix 100 mls @ 400 mls/hr IV BID [facility] Last Admin: 10/24/20 10:26 Dose: 400 mls/hr Documented by: Vancomycin HCl 1.25 gm/ Sodium (Chloride) 250 mls @ 200 mls/hr IV Q12H [facility] Last Admin: 10/26/20 08:45 Dose: 200 mls/hr Documented by: Insulin Glargine (Lantus) 8 unit SUBCUT DAILY [facility] Last Admin: 10/25/20 09:11 Dose: Not Given Documented by: Levetiracetam (Keppra) 500 mg PO BID [facility] Last Admin: 10/23/20 21:59 Dose: Not Given Documented by: Metoprolol Tartrate (Lopressor) 12.5 mg PO ONETIME STA Stop: 10/25/20 19:35 Last Admin: 10/25/20 19:46 Dose: 12.5 mg Documented by: Metoprolol Tartrate (Lopressor) 12.5 mg PO ONETIME ONE Stop: 10/25/20 22:03 Last Admin: 10/25/20 22:32 Dose: 12.5 mg Documented by: Sodium Chloride (Saline Flush) 10 ml FLUSH ASDIRECTED PRN PRN Reason: Keep Vein Open Last Admin: 10/25/20 11:18 Dose: 10 ml Documented by: Vancomycin HCl (Vancomycin) Confirm Administered Dose 1 gm .ROUTE .STK-MED ONE Stop: 10/23/20 18:11 Last Admin: 10/23/20 18:14 Dose: 1 gm Documented by: Vancomycin HCl (Vancomycin) Confirm Administered Dose 750 mg .ROUTE .STK-MED ONE Stop: 10/23/20 18:12 Last Admin: 10/23/20 18:14 Dose: 750 mg Documented by: - Exam General: No Acute Distress, Other (Tired this morning but does alert to voice) HEENT: Mucous Membr. Moist/Guerra Neck: Supple, Trachea Midline, No Thyromegaly. No: Lymphadenopathy Lungs: Normal Respiratory Effort, Crackles (scattered in the bases bilaterally) Cardiovascular: Regular Rate, Regular Rhythm, No Murmurs GI/Abdominal Exam: Normal Bowel Sounds, Soft, Non-Tender, No Organomegaly, No Distention, No Mass Extremities: Non-Tender, No Pedal Edema, Normal Capillary Refill Peripheral Pulses: 2+: Radial (L), Radial (R) Skin: Warm, Dry, Intact Neurological: No New Focal Deficit - Patient Data Lab Results Last 24 hrs: Laboratory Results - last 24 hr 10/26/20 10/26/20 10/26/20 Range/Units 11:15 17:01 21:50 WBC (4.0-10.0) x10^3/uL RBC (4.5-6.0) x10^6/uL Hgb (14.0-18.0) g/dL Hct (40.0-52.0) % MCV (78.0-93.0) fL MCH (26.0-32.0) pg MCHC (32.0-36.0) g/dL RDW Coeff of Shira (10.0-15.0) % Plt Count (130-400) x10^3/uL Neut % (Auto) (50.0-80.0) % Lymph % (Auto) (25.0-50.0) % Bailey % (Auto) (2.0-11.0) % Eos % (Auto) (0.0-4.0) % Baso % (Auto) (0.2-1.2) % Sodium (136-145) mmol/L Potassium (3.5-5.1) mmol/L Chloride (98-107) mmol/L Carbon Dioxide (21-32) mmol/L Anion Gap (5-15) mmol/L BUN (7-18) mg/dL Creatinine (0.70-1.30) mg/dL Est Cr Clr Drug Dosing mL/min Estimated GFR (MDRD) Glucose (74-106) mg/dL POC Glucose 100 74 95 (74-106) mg/dL Calcium (8.5-10.1) mg/dL C-Reactive Protein (<=0.9) mg/dL 10/27/20 10/27/20 10/27/20 Range/Units 06:19 06:45 06:45 WBC 8.3 (4.0-10.0) x10^3/uL RBC 2.81 L (4.5-6.0) x10^6/uL Hgb 8.3 L D (14.0-18.0) g/dL Hct 26.8 L (40.0-52.0) % MCV 95.4 H (78.0-93.0) fL MCH 29.5 (26.0-32.0) pg MCHC 31.0 L (32.0-36.0) g/dL RDW Coeff of Shira 14.6 (10.0-15.0) % Plt Count 147 (130-400) x10^3/uL Neut % (Auto) 74.7 (50.0-80.0) % Lymph % (Auto) 16.8 L (25.0-50.0) % Bailey % (Auto) 5.5 (2.0-11.0) % Eos % (Auto) 2.8 (0.0-4.0) % Baso % (Auto) 0.2 (0.2-1.2) % Sodium 147 H (136-145) mmol/L Potassium 3.5 (3.5-5.1) mmol/L Chloride 111 H (98-107) mmol/L Carbon Dioxide 32 (21-32) mmol/L Anion Gap 7.5 (5-15) mmol/L BUN 11 (7-18) mg/dL Creatinine 0.7 (0.70-1.30) mg/dL Est Cr Clr Drug Dosing 110.86 mL/min Estimated GFR (MDRD) > 60 Glucose 84 (74-106) mg/dL POC Glucose 86 (74-106) mg/dL Calcium 8.8 (8.5-10.1) mg/dL C-Reactive Protein 21.1 H (<=0.9) mg/dL Result Diagrams: 10/27/20 06:45 10/27/20 06:45 Gerber Results Last 24 hrs: Microbiology 10/23/20 17:19 Aerobic Blood Culture - Preliminary Blood - Venous - Lab Draw NO GROWTH AFTER 3 DAYS Anaerobic Blood Culture - Preliminary NO GROWTH AFTER 3 DAYS 10/23/20 16:55 Aerobic Blood Culture - Preliminary Blood - Venous NO GROWTH AFTER 3 DAYS Anaerobic Blood Culture - Preliminary NO GROWTH AFTER 3 DAYS 10/24/20 13:14 Gram Stain - Final Sputum - Expectorated Sputum Culture - Final Staphylococcus Coagulase Neg Sepsis Event Note - Evaluation Sepsis Screening Result: No Definite Risk - Focused Exam Vital Signs: Vital Signs Temp Pulse Pulse Resp BP BP Pulse Ox 10/27/20 08:25 71 115/58 L 10/27/20 06:00 36.5 C 71 20 115/58 L 100 10/27/20 01:58 36.3 C 65 20 98/52 L 96 10/26/20 21:58 35.6 C L 81 20 96/48 L 94 L - Problem List & Annotations (1) Sepsis SNOMED Code(s): 44605616 Code(s): A41.9 - SEPSIS, UNSPECIFIED ORGANISM Status: Acute Priority: High Current Visit: Yes Qualifiers: Sepsis type: sepsis due to unspecified organism Sepsis acute organ dysfunction status: unspecified Qualified Code(s): A41.9 - Sepsis, unspecified organism (2) Hypotension SNOMED Code(s): 87565743 Code(s): I95.9 - HYPOTENSION, UNSPECIFIED Status: Chronic Current Visit: No Qualifiers: Hypotension type: idiopathic hypotension Qualified Code(s): I95.0 - Idiopathic hypotension (3) Healthcare-associated pneumonia SNOMED Code(s): 818162077, 006886529 Code(s): J18.9 - PNEUMONIA, UNSPECIFIED ORGANISM Status: Acute Current Visit: Yes (4) Palliative care patient SNOMED Code(s): 955405685, 332810022 Code(s): Z51.5 - ENCOUNTER FOR PALLIATIVE CARE Status: Acute Current Visit: Yes (5) Atrial fibrillation SNOMED Code(s): 36635268 Code(s): I48.91 - UNSPECIFIED ATRIAL FIBRILLATION Status: Chronic Current Visit: Yes Qualifiers: Atrial fibrillation type: persistent (not longstanding) Qualified Code(s): I48.19 - Other persistent atrial fibrillation; I48.1 - Persistent atrial fibrillation (6) Urine culture positive SNOMED Code(s): 455638669 Code(s): R82.79 - OTHER ABNORMAL FINDINGS ON MICROBIOLOG EXAMINATION OF URINE Status: Acute Current Visit: Yes (7) BPH (benign prostatic hyperplasia) SNOMED Code(s): 306530341 Code(s): N40.0 - BENIGN PROSTATIC HYPERPLASIA WITHOUT LOWER URINRY TRACT SYMP Status: Acute Current Visit: Yes Qualifiers: Lower urinary tract symptom presence: symptoms present Lower urinary tract symptom detail: urinary retention Qualified Code(s): N40.1 - Benign prostatic hyperplasia with lower urinary tract symptoms; R33.8 - Other retention of urine (8) Indwelling urinary catheter present SNOMED Code(s): 068904976, 375613058 Code(s): Z96.0 - PRESENCE OF UROGENITAL IMPLANTS Status: Chronic Current Visit: Yes (9) Sacral wound SNOMED Code(s): 227494337, 493912666 Code(s): S31.000A - UNSP OPN WND LOW BACK AND PELV W/O PENET RETROPERITON, INIT Status: Chronic Current Visit: Yes Qualifiers: Encounter type: subsequent encounter Qualified Code(s): S31.000D - Unspecified open wound of lower back and pelvis without penetration into retroperitoneum, subsequent encounter (10) Osteomyelitis of sacrum SNOMED Code(s): 548049287, 131463748 Code(s): M46.28 - OSTEOMYELITIS OF VERTEBRA, SACRAL AND SACROCOCCYGEAL REGION Status: Resolved Current Visit: No (11) Diabetes SNOMED Code(s): 01755255 Code(s): E11.9 - TYPE 2 DIABETES MELLITUS WITHOUT COMPLICATIONS Status: Chronic Current Visit: Yes Qualifiers: Diabetes mellitus type: type 2 Diabetes mellitus assistant terminal manager insulin use: without assistant terminal manager use Diabetes mellitus complication status: without complication Qualified Code(s): E11.9 - Type 2 diabetes mellitus without complications (12) COPD (chronic obstructive pulmonary disease) SNOMED Code(s): 20898682 Code(s): J44.9 - CHRONIC OBSTRUCTIVE PULMONARY DISEASE, UNSPECIFIED Status: Chronic Current Visit: Yes Qualifiers: COPD type: unspecified COPD Qualified Code(s): J44.9 - Chronic obstructive pulmonary disease, unspecified (13) Schizoaffective disorder SNOMED Code(s): 63978200 Code(s): F25.9 - SCHIZOAFFECTIVE DISORDER, UNSPECIFIED Status: Chronic Current Visit: Yes Qualifiers: Schizoaffective disorder type: unspecified Qualified Code(s): F25.9 - Schizoaffective disorder, unspecified (14) Seizure disorder SNOMED Code(s): 922465348 Code(s): G40.909 - EPILEPSY, UNSP, NOT INTRACTABLE, WITHOUT STATUS EPILEPTICUS Status: Chronic Current Visit: Yes (15) Anemia SNOMED Code(s): 927320875 Code(s): D64.9 - ANEMIA, UNSPECIFIED Status: Acute Current Visit: Yes Qualifiers: Anemia type: unspecified type Qualified Code(s): D64.9 - Anemia, unspecified (16) Hypernatremia SNOMED Code(s): 881658531 Code(s): E87.0 - HYPEROSMOLALITY AND HYPERNATREMIA Status: Acute Priority: High Current Visit: No Onset Date: 07/28/15 - Problem List Review Problem List Initiated/Reviewed/Updated: Yes - My Orders Last 24 Hours: My Active Orders 10/26/20 09:30 Metoprolol Tartrate [Lopressor] 12.5 mg PO BID 10/26/20 18:00 Amoxicillin/Clavulanate K [Augmentin 875 MG/125 MG] 1 tab PO BIDMEALS 10/26/20 20:00 Doxycycline [Vibramycin] 100 mg PO BID 10/27/20 08:08 Chest 1V Frontal [CR] Routine 10/27/20 14:00 CBC WITH AUTO DIFF [HEME] Routine - Assessment Assessment:: 69 yo male hospital day #5 admitted with sepsis secondary to pneumonia. Is continuing to improve both clinically and in terms of his labs (with the exception of his Hgb, which is down today). O2 requirements greatly decreased over the past 24 hours and he has had no episodes of RVR. - Plan Plan:: #1 Severe sepsis, secondary to #3, resolved #2 Hypotension, acute on chronic, resolved #3 Healthcare associated Pneumonia #4 Palliative care patient - Patient is doing much better today. Vitals have stabilized (aside from related to RVR), CRP is downtrending, and WBC remains normal. O2 requirements also improving. - CXR repeated this morning is much improved compared to prior. - IV fluids d/c'd yesterday and he is eating/drinking well. Will remain off of this for now. - BP's much better in the past 24 hours. Continue midodrine only for now. - Blood cultures negative. Urine and sputum cultures positive. Urine with pseudomonas (felt to be colonized) and sputum with staph (not felt to be correct pathogen given location of infection). - No issues with transition to PO antibiotics. Continue augmentin and doxycycline. Will plan for a total of a 7 day course of antibiotics. #5 A-fib with RVR - No further episodes of RVR since metoprolol started. - Continue BID metoprolol. - Will d/c telemetry today. #6 Urine culture positive for pseudomonas #7 BPH with urinary retention #8 Chronic indwelling urinary catheter - Has not really had concerns for UTI given significant pneumonia. - Culture did grow pseudomonas, which is resistant to the antibiotics he is on. Given he is clinically improving, really less likely that the UTI is an infe ction and more likely this is colonization. - U/A showed mild pyuria but he has continued to improve on his current antibiotics, further supporting the likelihood that the pseudomonas is colonized rather than infectious. 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 Not likely to be a major contributor to his current illness. - Wound clinic appointments scheduled. - Wound vac changed 10/25 without incident. #11 Diabetes - Glucoses acceptable without medications. - Continue QID glucose changes. - He does have low dose correction scale with meals if need be. #12 COPD #13 Schizoaffective Disorder #14 Seizure disorder - He is swallowing his pills without any issues. - Home medications continued. #15 Hypernatremia, resolved #15 Anemia - Sodium up slightly today. - Hgb down again this am. Will repeat Hgb again at 2 pm. - Will otherwise continue to monitor daily. Patient will remain on acute today - anticipate he will be medically stable for d/c from acute as soon as tomorrow if his improvement continues at the current pace. Note he will pass his 96 hour stay later today; however, he is not currently medically ready for d/c and does not require transfer to a higher level of care given he is improving. Awaiting confirmation for him to return to the SNF. If this is delayed, we will need to consider swing bed. In anticipation for this, will do PT and OT assessments today. He is on eliquis so does not require other VTE prophylaxis - will reassess need to hold the eliquis based on Hgb this pm. Code status is DNR/DNI/comfort measures + antibiotics.
[2020-10-27] MEDS: Insulin Lispro 100 Units/ML 3 ML Vial SUBCUT SCH ×3 (09:53→17:51)
[2020-10-27] MEDS: Sodium Chloride 0.9% 10 ML Syringe FLUSH PRN ×2 (20:50→20:51)
[2020-10-28] MEDS: Albuterol/Ipratropium 3.0-0.5 MG/3 ML Neb Soln INH SCH ×3 (06:23→12:51)
[2020-10-28] MEDS: Budesonide 0.5 MG/2 ML Neb Susp NEB SCH (06:23)
[2020-10-28] MEDS: Midodrine 5 MG Tab PO SCH ×2 (06:23→12:13)
[2020-10-28 07:48] LABS: CHLORIDE,CL 111 mmol/L (98-107); SODIUM,NA 148 mmol/L (136-145)
[2020-10-28 07:49] LABS: ANION GAP 8.3 mmol/L (5-15)
--- NOTE | 2020-10-28 09:03 | PCM.DCSUM1 ---
Discharge Summary - Hospital Course Brief History: Mr. Mendes is a 69 yo male who was admitted with sepsis secondary to pneumonia after presenting to the ER for evaluation of lethargy and hypoxia. - Discharge Data Discharge Date: 10/28/20 Discharge Disposition: DC/Tfer to SNF 03 Condition: Good - Referral to Home Health Primary Care Physician: Jessica Salamanca MD - Discharge Diagnosis/Problem(s) (1) Sepsis SNOMED Code(s): 73953461 ICD Code: A41.9 - SEPSIS, UNSPECIFIED ORGANISM Status: Acute Priority: High Current Visit: Yes Qualifiers: Sepsis type: sepsis due to unspecified organism Sepsis acute organ dysfunction status: unspecified Qualified Code(s): A41.9 - Sepsis, unspecified organism (2) Hypotension SNOMED Code(s): 57087918 ICD Code: I95.9 - HYPOTENSION, UNSPECIFIED Status: Chronic Current Visit: No Qualifiers: Hypotension type: idiopathic hypotension Qualified Code(s): I95.0 - Idiopathic hypotension (3) Healthcare-associated pneumonia SNOMED Code(s): 490353651, 095351386 ICD Code: J18.9 - PNEUMONIA, UNSPECIFIED ORGANISM Status: Acute Current Visit: Yes (4) Palliative care patient SNOMED Code(s): 912357918, 760381365 ICD Code: Z51.5 - ENCOUNTER FOR PALLIATIVE CARE Status: Acute Current Visit: Yes (5) Atrial fibrillation SNOMED Code(s): 29407374 ICD Code: I48.91 - UNSPECIFIED ATRIAL FIBRILLATION Status: Chronic Current Visit: Yes Qualifiers: Atrial fibrillation type: persistent (not longstanding) Qualified Code(s): I48.19 - Other persistent atrial fibrillation; I48.1 - Persistent atrial fibrillation (6) Urine culture positive SNOMED Code(s): 106471544 ICD Code: R82.79 - OTHER ABNORMAL FINDINGS ON MICROBIOLOG EXAMINATION OF URINE Status: Acute Current Visit: Yes (7) BPH (benign prostatic hyperplasia) SNOMED Code(s): 375891368 ICD Code: N40.0 - BENIGN PROSTATIC HYPERPLASIA WITHOUT LOWER URINRY TRACT SYMP Status: Acute Current Visit: Yes Qualifiers: Lower urinary tract symptom presence: symptoms present Lower urinary tract symptom detail: urinary retention Qualified Code(s): N40.1 - Benign prostatic hyperplasia with lower urinary tract symptoms; R33.8 - Other retention of urine (8) Indwelling urinary catheter present SNOMED Code(s): 553356027, 600539815 ICD Code: Z96.0 - PRESENCE OF UROGENITAL IMPLANTS Status: Chronic Current Visit: Yes (9) Sacral wound SNOMED Code(s): 201962009, 814093249 ICD Code: S31.000A - UNSP OPN WND LOW BACK AND PELV W/O PENET RETROPERITON, INIT Status: Chronic Current Visit: Yes Qualifiers: Encounter type: subsequent encounter Qualified Code(s): S31.000D - Unspecified open wound of lower back and pelvis without penetration into retroperitoneum, subsequent encounter (10) Osteomyelitis of sacrum SNOMED Code(s): 318708088, 459732779 ICD Code: M46.28 - OSTEOMYELITIS OF VERTEBRA, SACRAL AND SACROCOCCYGEAL REGION Status: Resolved Current Visit: No (11) Diabetes SNOMED Code(s): 80507859 ICD Code: E11.9 - TYPE 2 DIABETES MELLITUS WITHOUT COMPLICATIONS Status: Chronic Current Visit: Yes Qualifiers: Diabetes mellitus type: type 2 Diabetes mellitus detention insulin use: without detention use Diabetes mellitus complication status: without complication Qualified Code(s): E11.9 - Type 2 diabetes mellitus without complications (12) COPD (chronic obstructive pulmonary disease) SNOMED Code(s): 42296226 ICD Code: J44.9 - CHRONIC OBSTRUCTIVE PULMONARY DISEASE, UNSPECIFIED Status: Chronic Current Visit: Yes Qualifiers: COPD type: unspecified COPD Qualified Code(s): J44.9 - Chronic obstructive pulmonary disease, unspecified (13) Schizoaffective disorder SNOMED Code(s): 60235800 ICD Code: F25.9 - SCHIZOAFFECTIVE DISORDER, UNSPECIFIED Status: Chronic Current Visit: Yes Qualifiers: Schizoaffective disorder type: unspecified Qualified Code(s): F25.9 - Schizoaffective disorder, unspecified (14) Seizure disorder SNOMED Code(s): 639171737 ICD Code: G40.909 - EPILEPSY, UNSP, NOT INTRACTABLE, WITHOUT STATUS EPILEPTICUS Status: Chronic Current Visit: Yes (15) Anemia SNOMED Code(s): 183405308 ICD Code: D64.9 - ANEMIA, UNSPECIFIED Status: Acute Current Visit: Yes Qualifiers: Anemia type: unspecified type Qualified Code(s): D64.9 - Anemia, unspecified (16) Hypernatremia SNOMED Code(s): 828060272 ICD Code: E87.0 - HYPEROSMOLALITY AND HYPERNATREMIA Status: Acute Priority: High Current Visit: No Onset Date: 07/28/15 - Patient Summary/Data Operative Procedure(s) Performed: none Complications: none Consults: none Labs Pending at D/C: none Recommended Follow-up Testing/Procedures: CBC, BMP with next rounds Planned Operative Procedure(s) after DC: none Hospital Course: The patient was critically ill on arrival to the ER. Discussions were had with the patient and his family regarding transfer to [place]. They were not interested in this; therefore, the decision was made by the patient, his family, and his guardian to keep him here in [place] essentially on comfort cares but with antibiotics. He was treated with vancomycin and zosyn. He was also given IV fluids. His blood pressures were persistently low despite fluids and his home midodrine; therefore, he was given hydrocortisone with nice improvement in blood pressures. After 2-3 days of IV antibiotics, he improved significantly. He was more awake, eating and drinking well, and labs were back to normal. He was then transitioned to oral antibiotics (augmentin and doxycycline) without incident. His oxygen requirements have decreased significantly in the past 24-48 hours and he is down to 4L via NC. A repeat CXR yesterday showed improvement in the left lung infiltrates but newly noted right lung infiltrates. It is felt the right lung infiltrates were likely there on admission but obscured by the left lung infiltrates and positioning or more noticeable after fluid resuscitation. He has clinically continued to improve; therefore, it is not felt this is not responsive to his current antibiotic regimen. His IV fluids were discontinued also on 10/26 and he has continued to eat/drink well. His sodium has gradually trended up slightly but remains only slightly above normal today. His catheter was exchanged due to a positive urine culture for pseudomonas. This is felt to be colonized rather than infectious given the fact that it came back resistant to the antibiotics he was receiving and he had been improving anyway. His hospitalization was also complicated by a-fib with RVR and anemia. He was started on oral metoprolol for his a-fib and this has worked well. HR have been well controlled since he started this and his blood pressure tolerated this without any issue. His hemoglobin did trend downward with a joan at 8.7. No intervention was done for this and it then started trending up again and is up to 11.1 on the day of discharge. His glucoses were within normal limits without any medications. He will follow-up when next due for rounds, sooner as need be. His labs will be repeated at that time as well. - Patient Instructions Diet: Usual Diet as Tolerated Activity: As Tolerated Driving: Do Not Drive - Discharge Plan *PRESCRIPTION DRUG MONITORING PROGRAM REVIEWED*: No *COPY OF PRESCRIPTION DRUG MONITORING REPORT IN PATIENT MYRIAM: No Prescriptions/Med Rec: Amoxicillin/Clavulanate K [Augmentin 875-125 MG] 1 tab PO BIDMEALS #4 tablet Metoprolol Tartrate [Lopressor] 12.5 mg PO BID #90 tablet Doxycycline [Vibramycin] 100 mg PO BID #4 cap Home Medications: Home Meds Albuterol/Ipratropium [DuoNeb 3.0-0.5 MG/3 ML] 3 ml INH QID 10/23/20 [History] Apixaban [Eliquis] 5 mg PO BID 10/23/20 [History] Ascorbic Acid [Vitamin C] 500 mg PO BID 10/23/20 [History] Budesonide [Pulmicort] 0.5 mg IH BID 10/23/20 [History] Cholecalciferol (Vitamin D3) [Vitamin D3] 2,000 unit PO DAILY 10/23/20 [History] Finasteride [Proscar] 5 mg PO DAILY 10/23/20 [History] Furosemide 40 mg PO DAILY 10/23/20 [History] Levothyroxine 112 mcg PO DAILY 10/23/20 [History] Magnesium Hydroxide [Milk of Magnesia] 30 ml PO DAILY PRN 10/23/20 [History] Magnesium Oxide 500 mg PO DAILY 10/23/20 [History] Miconazole 1 dose TOP BID 10/23/20 [History] Midodrine 5 mg PO TID 10/23/20 [History] Multivitamin-Min/Iron/FA/Vit K [Multi-Day Plus Minerals Tablet] 1 each PO DAILY 10/23/20 [History] Non-Formulary Medication [NF Drug] 3 mg PO DAILY 10/23/20 [History] OLANZapine [ZyPREXA] 20 mg PO BID 10/23/20 [History] Sodium Chloride 0.9% [Saline Flush] 10 ml IV ASDIRECTED PRN 10/23/20 [History] Valproic Acid [Depakene] 1,250 mg PO DAILY 10/23/20 [History] Valproic Acid [Depakene] 1,500 mg PO DAILY 10/23/20 [History] atorvaSTATin [Lipitor] 20 mg PO DAILY 10/23/20 [History] clonazePAM [Clonazepam] 0.5 mg PO DAILY 10/23/20 [History] fluvoxaMINE Maleate [Fluvoxamine Maleate] 100 mg PO BID 10/23/20 [History] polyethylene glycoL 3350 [MiraLAX] 17 gm PO DAILY PRN 10/23/20 [History] traMADol [Ultram] 50 mg PO Q8H PRN 10/23/20 [History] Acetaminophen 975 mg PO TID 10/26/20 [History] levETIRAcetam [Keppra] 500 mg PO BID 10/26/20 [History] Amoxicillin/Clavulanate K [Augmentin 875-125 MG] 1 tab PO BIDMEALS #4 tablet 10/28/20 [Rx] Doxycycline [Vibramycin] 100 mg PO BID #4 cap 10/28/20 [Rx] Metoprolol Tartrate [Lopressor] 12.5 mg PO BID #90 tablet 10/28/20 [Rx] Forms: ED Department Discharge Referrals: Jessica Salamanca MD [Primary Care Provider] - - Discharge Summary/Plan Comment DC Time >30 min.: No - General Info Date of Service: 10/28/20 Subjective Update: Patient states he is not doing well today due to his bowel movements. Nursing denies any concerns related to this. He otherwise states his cough is improving; no shortness of breath. He is more awake and alert today. His appetite is good. - Review of Systems General: Reports: No Symptoms HEENT: Reports: No Symptoms Pulmonary: Reports: Cough. Denies: Shortness of Breath Cardiovascular: Reports: No Symptoms Gastrointestinal: Reports: No Symptoms Genitourinary: Reports: No Symptoms Musculoskeletal: Reports: No Symptoms Skin: Reports: No Symptoms Neurological: Reports: No Symptoms - Patient Data Vitals - Most Recent: Last Vital Signs Temp 36.3 C 10/28/20 06:00 Pulse 75 10/28/20 06:00 Resp 16 10/28/20 06:00 BP 114/71 10/28/20 06:00 Pulse Ox 91 L 10/28/20 06:00 Weight - Most Recent: 89.811 kg I&O - Last 24 hours: Intake & Output 10/27/20 10/28/20 10/28/20 22:59 06:59 14:59 Intake Total 120 120 Output Total 1250 450 Balance -1130 -330 Lab Results - Last 24 hrs: Laboratory Results - last 24 hr 10/27/20 10/27/20 10/27/20 Range/Units 11:18 13:59 17:27 WBC 6.7 (4.0-10.0) x10^3/uL RBC 3.68 L (4.5-6.0) x10^6/uL Hgb 10.6 L D (14.0-18.0) g/dL Hct 34.1 L (40.0-52.0) % MCV 92.7 (78.0-93.0) fL MCH 28.8 (26.0-32.0) pg MCHC 31.1 L (32.0-36.0) g/dL RDW Coeff of Shira 14.7 (10.0-15.0) % Plt Count 122 L (130-400) x10^3/uL Neut % (Auto) 77.2 (50.0-80.0) % Lymph % (Auto) 13.9 L (25.0-50.0) % [place] % (Auto) 6.2 (2.0-11.0) % Eos % (Auto) 2.4 (0.0-4.0) % Baso % (Auto) 0.3 (0.2-1.2) % Add Manual Diff Neutrophils % (Manual) (50-80) % Lymphocytes % (Manual) (25-50) % Monocytes % (Manual) (2-11) % Eosinophils % (Manual) (0-4) % Platelet Estimate Sodium (136-145) mmol/L Potassium (3.5-5.1) mmol/L Chloride (98-107) mmol/L Carbon Dioxide (21-32) mmol/L Anion Gap (5-15) mmol/L BUN (7-18) mg/dL Creatinine (0.70-1.30) mg/dL Est Cr Clr Drug Dosing mL/min Estimated GFR (MDRD) Glucose (74-106) mg/dL POC Glucose 132 H 88 (74-106) mg/dL Calcium (8.5-10.1) mg/dL C-Reactive Protein (<=0.9) mg/dL 10/27/20 10/28/20 10/28/20 Range/Units 20:44 06:21 07:04 WBC 6.4 (4.0-10.0) x10^3/uL RBC 3.83 L (4.5-6.0) x10^6/uL Hgb 11.1 L (14.0-18.0) g/dL Hct 35.7 L (40.0-52.0) % MCV 93.2 H (78.0-93.0) fL MCH 29.0 (26.0-32.0) pg MCHC 31.1 L (32.0-36.0) g/dL RDW Coeff of Shira 14.7 (10.0-15.0) % Plt Count 147 (130-400) x10^3/uL Neut % (Auto) (50.0-80.0) % Lymph % (Auto) (25.0-50.0) % [place] % (Auto) (2.0-11.0) % Eos % (Auto) (0.0-4.0) % Baso % (Auto) (0.2-1.2) % Add Manual Diff Yes Neutrophils % (Manual) 76 (50-80) % Lymphocytes % (Manual) 16 L (25-50) % Monocytes % (Manual) 6 (2-11) % Eosinophils % (Manual) 2 (0-4) % Platelet Estimate Adequate Sodium (136-145) mmol/L Potassium (3.5-5.1) mmol/L Chloride (98-107) mmol/L Carbon Dioxide (21-32) mmol/L Anion Gap (5-15) mmol/L BUN (7-18) mg/dL Creatinine (0.70-1.30) mg/dL Est Cr Clr Drug Dosing mL/min Estimated GFR (MDRD) Glucose (74-106) mg/dL POC Glucose 124 H 74 (74-106) mg/dL Calcium (8.5-10.1) mg/dL C-Reactive Protein (<=0.9) mg/dL 10/28/20 Range/Units 07:04 WBC (4.0-10.0) x10^3/uL RBC (4.5-6.0) x10^6/uL Hgb (14.0-18.0) g/dL Hct (40.0-52.0) % MCV (78.0-93.0) fL MCH (26.0-32.0) pg MCHC (32.0-36.0) g/dL RDW Coeff of Shira (10.0-15.0) % Plt Count (130-400) x10^3/uL Neut % (Auto) (50.0-80.0) % Lymph % (Auto) (25.0-50.0) % [place] % (Auto) (2.0-11.0) % Eos % (Auto) (0.0-4.0) % Baso % (Auto) (0.2-1.2) % Add Manual Diff Neutrophils % (Manual) (50-80) % Lymphocytes % (Manual) (25-50) % Monocytes % (Manual) (2-11) % Eosinophils % (Manual) (0-4) % Platelet Estimate Sodium 148 H (136-145) mmol/L Potassium 3.3 L (3.5-5.1) mmol/L Chloride 111 H (98-107) mmol/L Carbon Dioxide 32 (21-32) mmol/L Anion Gap 8.3 (5-15) mmol/L BUN 10 (7-18) mg/dL Creatinine 0.6 L (0.70-1.30) mg/dL Est Cr Clr Drug Dosing 129.33 mL/min Estimated GFR (MDRD) > 60 Glucose 81 (74-106) mg/dL POC Glucose (74-106) mg/dL Calcium 8.8 (8.5-10.1) mg/dL C-Reactive Protein 14.1 H (<=0.9) mg/dL PENNY Results - Last 24 hrs: Microbiology 10/23/20 17:19 Aerobic Blood Culture - Preliminary Blood - Venous - Lab Draw NO GROWTH AFTER 4 DAYS Anaerobic Blood Culture - Preliminary NO GROWTH AFTER 4 DAYS 10/23/20 16:55 Aerobic Blood Culture - Preliminary Blood - Venous NO GROWTH AFTER 4 DAYS Anaerobic Blood Culture - Preliminary NO GROWTH AFTER 4 DAYS Med Orders - Current: Current Medications Acetaminophen (Tylenol) 650 mg PO Q4H PRN PRN Reason: Pain (Mild 1-3)/fever Acetaminophen (Acetaminophen 325 Mg Tab) 975 mg PO TID [facility] Last Admin: 10/27/20 20:41 Dose: 975 mg Documented by: Albuterol/Ipratropium (Albuterol/Ipratropium 3.0-0.5 Mg/3 Ml Neb Soln) 3 ml INH QIDRT [facility] Last Admin: 10/28/20 06:23 Dose: 3 ml Documented by: Amoxicillin/Clavulanate Potassium (Amoxicillin/Clavulanate K 875-125 Mg Tab) 1 tab PO BIDMEALS [facility] Last Admin: 10/27/20 17:50 Dose: 1 tab Documented by: Apixaban (Apixaban 2.5 Mg Tab) 5 mg PO BID [facility] Last Admin: 10/27/20 20:38 Dose: 5 mg Documented by: Budesonide (Budesonide 0.5 Mg/2 Ml Neb Susp) 0.5 mg NEB BIDRT [facility] Last Admin: 10/28/20 06:23 Dose: 0.5 mg Documented by: Clonazepam (Clonazepam 0.5 Mg Tab) 0.5 mg PO DAILY [facility] Last Admin: 10/27/20 08:25 Dose: 0.5 mg Documented by: Dextrose/Water (Dextrose 50% In Water) 50 ml IV ASDIRECTED PRN PRN Reason: Hypoglycemia Doxycycline Hyclate (Doxycycline 100 Mg Cap) 100 mg PO BID [facility] Last Admin: 10/27/20 20:38 Dose: 100 mg Documented by: Finasteride (Finasteride 5 Mg Tab) 5 mg PO DAILY [facility] Last Admin: 10/27/20 08:24 Dose: 5 mg Documented by: Flumazenil (Romazicon) 0.2 mg IVPUSH ASDIRECTED PRN PRN Reason: Respiratory Depression Glucagon (Glucagen) 1 mg IM ASDIRECTED PRN PRN Reason: Hypoglycemia Sodium Chloride (Sodium Chloride 0.45%) 1,000 mls @ 100 mls/hr IV ASDIRECTED [facility] Last Admin: 10/26/20 08:44 Dose: 100 mls/hr Documented by: Insulin Human Lispro (Humalog) 0 unit SUBCUT TIDMEALS [facility]; Protocol Last Admin: 10/27/20 17:51 Dose: Not Given Documented by: Levetiracetam (Levetiracetam 500 Mg Tab) 500 mg PO BID [facility] Last Admin: 10/27/20 20:38 Dose: 500 mg Documented by: Levothyroxine Sodium (Levothyroxine 112 Mcg Tab) 112 mcg PO DAILY [facility] Last Admin: 10/27/20 08:25 Dose: 112 mcg Documented by: Lorazepam (Ativan) 1 mg IVPUSH Q4H PRN PRN Reason: Seizures Magnesium Hydroxide (Milk Of Magnesia) 30 ml PO DAILY PRN PRN Reason: Constipation Metoprolol Tartrate (Metoprolol Tartrate 25 Mg Tab) 12.5 mg PO BID [facility] Last Admin: 10/27/20 20:45 Dose: 12.5 mg Documented by: Miconazole (Desenex 2%) 0 gm TOP BID [facility] Last Admin: 10/27/20 20:38 Dose: 1 applic Documented by: Midodrine (Midodrine 5 Mg Tab) 5 mg PO TIDAC [facility] Last Admin: 10/28/20 06:23 Dose: 5 mg Documented by: Fluvoxamine Maleate (100 Mg (Own Supply)) 0 mg PO BID [facility] Last Admin: 10/27/20 20:38 Dose: 100 mg Documented by: Olanzapine (Olanzapine 10 Mg Tab) 20 mg PO BID [facility] Last Admin: 10/27/20 20:38 Dose: 20 mg Documented by: Ondansetron HCl (Zofran) 4 mg IV Q4H PRN PRN Reason: Nausea/Vomiting Polyethylene Glycol (Miralax) 17 gm PO DAILY PRN PRN Reason: Constipation Sodium Chloride (Saline Flush) 10 ml FLUSH ASDIRECTED PRN PRN Reason: Keep Vein Open Last Admin: 10/27/20 20:51 Dose: 10 ml Documented by: Valproic Acid (Valproic Acid 250 Mg/5 Ml Soln 5 Ml Ud Cup) 1,250 mg PO DAILY [facility] Last Admin: 10/27/20 08:24 Dose: 1,250 mg Documented by: Valproic Acid (Depakene) 1,500 mg PO DAILY@2100 [facility] Last Admin: 10/27/20 20:41 Dose: 1,500 mg Documented by: Discontinued Medications Budesonide (Pulmicort) 0.5 mg NEB BID [facility] Last Admin: 10/23/20 20:50 Dose: Not Given Documented by: Ceftriaxone Sodium (Rocephin) 2 gm IV STAT ONE Stop: 10/23/20 17:00 Last Admin: 10/23/20 17:10 Dose: 2 gm Documented by: Hydrocortisone Sodium Succinate (Solu-Cortef) 100 mg IVPUSH Q6H [facility] Last Admin: 10/24/20 04:21 Dose: 100 mg Documented by: Hydromorphone HCl (Hydromorphone 0.5 Mg/0.5 Ml Syringe) 0.25 mg IVPUSH Q2H PRN PRN Reason: Pain (severe 7-10) Sodium Chloride (Normal Saline) 1,000 mls @ 1,000 mls/hr IV BOLUS ONE; Protocol Stop: 10/23/20 17:58 Last Admin: 10/23/20 16:55 Dose: 1,000 mls/hr Documented by: Vancomycin HCl 1.75 gm/ Premix 350 mls @ 200 mls/hr IV STAT ONE Stop: 10/23/20 19:25 Last Admin: 10/23/20 18:15 Dose: Not Given Documented by: Sodium Chloride (Normal Saline) 500 mls @ 500 mls/hr IV ONETIME ONE Stop: 10/23/20 19:53 Last Admin: 10/23/20 19:27 Dose: Not Given Documented by: Metronidazole 500 mg/ Premix 100 mls @ 100 mls/hr IV Q8H [facility] Vancomycin HCl 1 gm/ Sodium (Chloride) 250 mls @ 250 mls/hr IV Q12H [facility] Last Admin: 10/23/20 20:50 Dose: Not Given Documented by: Piperacillin Sod/Tazobactam (Sod 3.375 gm/ Sodium Chloride) 100 mls @ 25 mls/hr IV Q8H [facility] Last Admin: 10/26/20 08:52 Dose: Not Given Documented by: Sodium Chloride (Normal Saline) 1,000 mls @ 200 mls/hr IV ASDIRECTED [facility] Last Admin: 10/24/20 04:22 Dose: 200 mls/hr Documented by: Sodium Chloride (Normal Saline) 1,000 mls @ 500 mls/hr IV ONETIME ONE Stop: 10/23/20 20:53 Last Admin: 10/23/20 19:32 Dose: 500 mls/hr Documented by: Vancomycin HCl 1.25 gm/ Sodium (Chloride) 250 mls @ 200 mls/hr IV Q12H [facility] Last Admin: 10/23/20 23:18 Dose: Not Given Documented by: Levetiracetam 500 mg/ Premix 100 mls @ 400 mls/hr IV BID [facility] Last Admin: 10/24/20 10:26 Dose: 400 mls/hr Documented by: Vancomycin HCl 1.25 gm/ Sodium (Chloride) 250 mls @ 200 mls/hr IV Q12H [facility] Last Admin: 10/26/20 08:45 Dose: 200 mls/hr Documented by: Insulin Glargine (Lantus) 8 unit SUBCUT DAILY [facility] Last Admin: 10/25/20 09:11 Dose: Not Given Documented by: Levetiracetam (Keppra) 500 mg PO BID [facility] Last Admin: 10/23/20 21:59 Dose: Not Given Documented by: Metoprolol Tartrate (Lopressor) 12.5 mg PO ONETIME STA Stop: 10/25/20 19:35 Last Admin: 10/25/20 19:46 Dose: 12.5 mg Documented by: Metoprolol Tartrate (Lopressor) 12.5 mg PO ONETIME ONE Stop: 10/25/20 22:03 Last Admin: 10/25/20 22:32 Dose: 12.5 mg Documented by: Sodium Chloride (Saline Flush) 10 ml FLUSH ASDIRECTED PRN PRN Reason: Keep Vein Open Last Admin: 10/25/20 11:18 Dose: 10 ml Documented by: Vancomycin HCl (Vancomycin) Confirm Administered Dose 1 gm .ROUTE .STK-MED ONE Stop: 10/23/20 18:11 Last Admin: 10/23/20 18:14 Dose: 1 gm Documented by: Vancomycin HCl (Vancomycin) Confirm Administered Dose 750 mg .ROUTE .STK-MED ONE Stop: 10/23/20 18:12 Last Admin: 10/23/20 18:14 Dose: 750 mg Documented by: - Exam General: Reports: Alert, Cooperative, No Acute Distress HEENT: Reports: Mucous Membr. Moist/[place] Neck: Reports: Supple, Trachea Midline, No Thyromegaly. Denies: Lymphadenopathy Lungs: Reports: Normal Respiratory Effort, Crackles (rare bilaterally) Cardiovascular: Reports: Regular Rate, Regular Rhythm, No Murmurs GI/Abdominal Exam: Normal Bowel Sounds, Soft, Non-Tender, No Organomegaly, No Distention, No Mass Extremities: Normal Inspection, Non-Tender, No Pedal Edema Skin: Reports: Warm, Dry Neurological: Reports: No New Focal Deficit
[2020-10-28] MEDS: FLUVOXAMINE MALEATE 100 MG PO SCH (10:16)
[2020-10-28] MEDS: Doxycycline 100 MG Cap PO SCH (10:17)
[2020-10-28] MEDS: OLANZapine 10 MG Tab PO SCH (10:17)
[2020-10-28] MEDS: Amoxicillin/Clavulanate K 875-125 MG Tab PO SCH (10:17)
[2020-10-28] MEDS: Apixaban 2.5 MG Tab PO SCH (10:17)
[2020-10-28] MEDS: Finasteride 5 MG Tab PO SCH (10:17)
[2020-10-28] MEDS: Valproic Acid 250 MG/5 ML Soln 5 ML UD Cup PO SCH (10:17)
[2020-10-28] MEDS: ClonazePAM 0.5 MG Tab PO SCH (10:18)
[2020-10-28] MEDS: Acetaminophen 325 MG Tab PO SCH ×2 (10:18→12:13)
[2020-10-28] MEDS: Metoprolol Tartrate 25 MG Tab PO SCH (10:18)
[2020-10-28] MEDS: Levothyroxine 112 MCG Tab PO SCH (10:18)
[2020-10-28] MEDS: levETIRAcetam 500 MG Tab PO SCH (10:20)
[2020-10-28] MEDS: Insulin Lispro 100 Units/ML 3 ML Vial SUBCUT SCH ×2 (10:20→12:53)
[2020-10-28] MEDS: Miconazole 2% Top Powder 45 GM Container TOP SCH (10:21)
[2020-10-28 13:19] VITALS: BP 116/76; PULSE 76
== END 2020-10-28 14:20 | DRG 871 ==
LOC: VM.ED 16:45 → VM.MS 17:49
PROVIDERS: ADMIT Internal Medicine; ATTEND Family Medicine
DX: A41.9 Sepsis, unspecified organism (principal); J18.9 Pneumonia, unspecified organism; I48.91 Unspecified atrial fibrillation; E78.00 Pure hypercholesterolemia, unspecified; K59.09 Other constipation; K21.9 Gastro-esophageal reflux disease without esophagitis; N28.9 Disorder of kidney and ureter, unspecified; N40.0 Benign prostatic hyperplasia without lower urinary tract symptoms; M10.9 Gout, unspecified; F41.9 Anxiety disorder, unspecified; J96.01 Acute respiratory failure with hypoxia; T83.511A Infection and inflammatory reaction due to indwelling urethral catheter, initial encounter; N39.0 Urinary tract infection, site not specified; I48.19 Other persistent atrial fibrillation; E55.9 Vitamin D deficiency, unspecified; M46.28 Osteomyelitis of vertebra, sacral and sacrococcygeal region; J44.0 Chronic obstructive pulmonary disease with (acute) lower respiratory infection; Z79.84 Long term (current) use of oral hypoglycemic drugs; E87.0 Hyperosmolality and hypernatremia; Z79.51 Long term (current) use of inhaled steroids; I95.0 Idiopathic hypotension; Z51.5 Encounter for palliative care; Z20.822 Contact with and (suspected) exposure to COVID-19; N40.1 Benign prostatic hyperplasia with lower urinary tract symptoms; R33.8 Other retention of urine; S31.000D Unspecified open wound of lower back and pelvis without penetration into retroperitoneum, subsequent encounter; F25.9 Schizoaffective disorder, unspecified; G40.909 Epilepsy, unspecified, not intractable, without status epilepticus; D64.9 Anemia, unspecified; Z88.6 Allergy status to analgesic agent; Z88.8 Allergy status to other drugs, medicaments and biological substances; Z79.899 Other long term (current) drug therapy; Z79.890 Hormone replacement therapy; Z79.01 Long term (current) use of anticoagulants; F41.1 Generalized anxiety disorder; E78.5 Hyperlipidemia, unspecified; I48.0 Paroxysmal atrial fibrillation; M54.5 Low back pain; G89.29 Other chronic pain; N18.30 Chronic kidney disease, stage 3 unspecified; Z86.16 Personal history of COVID-19; Z86.14 Personal history of Methicillin resistant Staphylococcus aureus infection; M16.10 Unilateral primary osteoarthritis, unspecified hip; K59.00 Constipation, unspecified; D69.6 Thrombocytopenia, unspecified; E03.9 Hypothyroidism, unspecified; B96.5 Pseudomonas (aeruginosa) (mallei) (pseudomallei) as the cause of diseases classified elsewhere; R65.20 Severe sepsis without septic shock
CPT/HCPCS: 36415; 51702; 71045; 80048; 80053; 80202; 81001; 82962; 83605; 85025; 85610; 86140; 87040; 87070; 87086; 87088; 87186; 87205; 93005; 94640; 94760; 99284; A9270-GY; J0696; J1720; J1815-GY; J1953; J2543; J3370; J7030; J7050; J7620-GY; U0002